=== PATIENT | male | born 1930 | race Caucasian/White ===

== ENCOUNTER 2017-09-14 09:26 | Inpatient (IN) | payer MEDICARE, OTHER ==
--- NOTE | 2017-09-14 09:35 | EDM.PDOC ---
ED HPI GENERAL MEDICAL PROBLEM - General Chief Complaint: General Stated Complaint: IN BY AMBULANCE Time Seen by Provider: 09/14/17 09:35 Source of Information: Reports: Patient, EMS, Family, Old Records, RN, RN Notes Reviewed History Limitations: Reports: No Limitations - History of Present Illness INITIAL COMMENTS - FREE TEXT/NARRATIVE: Arrives from home by ambulance with report that pt's son-in-law went to pt's house as he does every morning at 5AM to turn the kitchen light on, make sure the house is warm, and help the pt get up from bed and start the day. This morning he found the pt to be hard to wake up, and felt feverish to the touch. Pt was then found to be slightly confused and seemed to have right sided weakness and required a great deal of assistance to get to the bathroom. He was too weak to get up from the toilet. Pt had a severe coughing spell and nearly fainted, but then coughed up a "huge yellow pile of mucus". Pt reports he has been feeling weaker and weaker for several days, and has had a cough. He states that he felt nauseated this morning and has not eaten anything today. He did take his usual morning medications. Pt's is currently admitted to the hospital with a pneumonia diagnosis. Pt reports that the right sided weakness seems to have resolved now. He denies pain, headache, visual changes, difficulty swallowing, chest pain, abdominal pain, vomiting, diarrhea, or constipation. Pt's family states that the confusion has resolved now also. Onset: Gradual Duration: Day(s): (2-3) Location: Reports: Generalized Severity: Severe Improves with: Reports: None Worsens with: Reports: None Associated Symptoms: Reports: No Other Symptoms - Related Data Allergies Allergy/AdvReac Type Severity Reaction Status Date / Time No Known Allergies Allergy Verified 09/14/17 09:40 Home Meds: Home Meds Aspirin [Ecotrin] 81 mg PO DAILY 11/05/15 [History] Clopidogrel [Plavix] 75 mg PO DAILY 11/05/15 [History] Clorazepate Dipotassium [Tranxene T-Tab] 7.5 mg PO DAILY 11/05/15 [History] Cyanocobalamin (Vitamin B-12) [Cyanocobalamin Injection] 100 mg IM 11/05/15 [ History] Esomeprazole [NexIUM] 40 mg PO DAILY 11/05/15 [History] Glimepiride [Amaryl] 2 mg PO WITHBREAKFAST 11/05/15 [History] Hydroxychloroquine Sulfate [Plaquenil] 200 mg PO DAILY 11/05/15 [History] Irbesartan [Avapro] 150 mg PO DAILY 11/05/15 [History] Levothyroxine Sodium [Synthroid] 125 mcg PO DAILY 11/05/15 [History] Losartan Potassium [Cozaar] 100 mg PO DAILY 11/05/15 [History] Meclizine HCl [Antivert] 12.5 mg PO DAILY 11/05/15 [History] Mirabegron [Myrbetriq] 25 mg PO QPM 11/05/15 [History] Naproxen Sodium [Aleve] 220 mg PO BID PRN 11/05/15 [History] Pravastatin Sodium [Pravachol] 20 mg PO DAILY 11/05/15 [History] azaTHIOprine [Imuran] 50 mg PO BID 11/05/15 [History] predniSONE [Prednisone] 10 mg PO DAILY 11/05/15 [History] Past Medical History HEENT History: Reports: Cataract, Hard of Hearing, Impaired Vision Other HEENT History: WEARS FULL UPPER DENTURE, AND PARTIAL BOTTOM Cardiovascular History: Reports: CAD, High Cholesterol, Hypertension, [place], Other (See Below) Other Cardiovascular History: MILD CAROTID STENOSIS; STROKE (PT STATES HE WAS TOLD BY A DOCTOR THAT THEY WERE NOT SURE IF IT WAS TRULY A STROKE OR A KS) Gastrointestinal History: Reports: Diverticulosis, Hemorrhoids, Other (See Below ) Other Gastrointestinal History: DYSPHAGIA R/T STROKE; GASTRIC ULCER Genitourinary History: Reports: Renal Disease, Retention, Urinary Musculoskeletal History: Reports: SLE Neurological History: Reports: CVA Psychiatric History: Reports: Anxiety Endocrine/Metabolic History: Reports: Diabetes, Type II, Hypothyroidism Hematologic History: Reports: Anemia, Blood Transfusion(s), Transfusion Reaction Other Hematologic History: ATTEMPTED TO HAVE TWO UNITS BLOOD TRANSFUSED - PT "FROZE TO " AND STOPPED TRANSFUSION Immunologic History: Reports: SLE - Past Surgical History HEENT Surgical History: Reports: Cataract Surgery Cardiovascular Surgical History: Reports: Carotid Endarterectomy, Coronary Artery Stent, Vascular Surgery, Other (See Below) GI Surgical History: Reports: Appendectomy, Cholecystectomy, Colonoscopy, Hernia , Inguinal, Other (See Below) Male Surgical History: Reports: Other (See Below) Social & Family History - Family History Family Medical History: Noncontributory - Tobacco Use Smoking Status *Q: Former Smoker Years of Tobacco use: 50 Packs/Tins Daily: 3 Second Hand Smoke Exposure: No - Caffeine Use Caffeine Use: Reports: Coffee, Soda - Alcohol Use Days Per Week of Alcohol Use: 0 - Recreational Drug Use Recreational Drug Use: No - Living Situation & Occupation Living situation: Reports: , with Spouse Occupation: Retired ED ROS GENERAL - Review of Systems Review Of Systems: ROS reveals no pertinent complaints other than HPI. ED EXAM, GENERAL - Physical Exam Exam: See Below Exam Limited By: No Limitations General Appearance: Alert, No Apparent Distress, Thin, Other (frail, elderly appearing man, looks uncomfortable and sick, but non-toxic) Eye Exam: Bilateral Eye: Normal Inspection Ears: Normal External Exam, Hearing Grossly Normal Nose: Normal Inspection, Normal Mucosa, No Blood Throat/Mouth: Normal Lips, Normal Oropharynx, Normal Voice, No Airway Compromise , Other (not wearing his dentures, dry oral membranes) Head: Atraumatic, Normocephalic Neck: Normal Inspection, Supple, Non-Tender, Full Range of Motion. No: Lymphadenopathy (L), Lymphadenopathy (R) Respiratory/Chest: No Respiratory Distress, No Accessory Muscle Use, Chest Non- Tender, Decreased Breath Sounds, Crackles, Rhonchi Cardiovascular: Regular Rate, Rhythm, No Edema, No JVD GI/Abdominal: Normal Bowel Sounds, Soft, Non-Tender, No Distention, No Abnormal Bruit (Male) Exam: Deferred Rectal (Males) Exam: Deferred Back Exam: Normal Inspection Extremities: Normal Inspection, Normal Range of Motion, Non-Tender, Normal Capillary Refill, No Pedal Edema Neurological: Alert, Oriented, CN II-XII Intact, Normal Cognition, No Motor/ Sensory Deficits, Other (generalized weakness, no focal deficits) Psychiatric: Normal Mood Skin Exam: Warm, Dry, Intact, Normal Color, No Rash EKG INTERPRETATION EKG Date: 09/14/17 Time: 10:02 Rhythm: Other (SR) Rate (Beats/Min): 77 [place]: LAD-Left [place] Deviation P-Wave: Present QRS: Other (LAFB) ST-T: Normal QT: Normal Comparison: No Change EKG Interpretation Comments: No acute ischemic changes. Course - Vital Signs Last Recorded V/S: Last Vital Signs Temp 37.2 C 09/14/17 09:35 Pulse 79 09/14/17 10:22 Resp 20 09/14/17 10:22 BP 118/46 L 09/14/17 10:22 Pulse Ox 95 09/14/17 10:22 - Orders/Labs/Meds Orders: Active Orders 24 hr Category Date Time Status EKG 12 Lead [EKG Documentation Completion] [] STAT Care 09/14/17 09:48 Active Peripheral IV Care [RC] . DIRECTED Care 09/14/17 09:49 Active RT Aerosol Therapy [RC] ASDIRECTED Care 09/14/17 10:22 Active CULTURE BLOOD [BC] Stat Lab 09/14/17 09:52 Received CULTURE BLOOD [BC] Stat Lab 09/14/17 09:56 Results CULTURE SPUTUM + SMEAR [RM] Stat Lab 09/14/17 10:34 Received UA W/MICROSCOPIC [URIN] Stat Lab 09/14/17 09:48 Uncollected Levofloxacin/Dextrose 5%-Water [Levaquin in D5W 500 MG/ Med 09/14/17 10:23 Active 100 ML] 500 mg Premix Bag 1 bag IV ONETIME Sodium Chloride 0.9% [Saline Flush] Med 09/14/17 09:48 Active 10 ml FLUSH ASDIRECTED PRN Blood Culture x2 Reflex Set [OM.PC] Stat Oth 09/14/17 09:48 Ordered Peripheral IV Insertion Adult [OM.PC] Stat Oth 09/14/17 09:48 Ordered Medication Orders Levofloxacin/Dextrose 500 mg/ (Premix) 100 mls @ 100 mls/hr IV ONETIME ONE Stop: 09/14/17 11:22 Last Admin: 09/14/17 10:45 Dose: 100 mls/hr Sodium Chloride (Saline Flush) 10 ml FLUSH ASDIRECTED PRN PRN Reason: Keep Vein Open Last Admin: 09/14/17 10:29 Dose: 10 ml Labs: Laboratory Tests 09/14/17 09/14/17 09/14/17 Range/Units 09:56 09:56 09:56 WBC 18.8 H (5.0-10.0) 10^3/uL RBC 4.63 (4.6-6.2) 10^6/uL Hgb 14.4 (14.0-18.0) g/dL Hct 43.0 (40.0-54.0) % MCV 92.9 D (80-100) fL MCH 31.1 (27.0-34.0) pg MCHC 33.5 (33.0-35.0) g/dL Plt Count 134 L (150-450) 10^3/uL Neut % (Auto) 89.3 H (42.2-75.2) % Lymph % (Auto) 2.8 L (20.5-50.1) % [place] % (Auto) 7.6 (2-8) % Eos % (Auto) 0.2 L (1.0-3.0) % Baso % (Auto) 0.1 (0.0-1.0) % Sodium 141 (135-145) mmol/L Potassium 4.2 (3.6-5.0) mmol/L Chloride 111 (101-111) mmol/L Carbon Dioxide 22.0 (21.0-31.0) mmol/L Anion Gap 12.2 BUN 32 H (7-18) mg/dL Creatinine 1.2 (0.6-1.3) mg/dL Est Cr Clr Drug Dosing 38.77 mL/min Estimated GFR (MDRD) 57 BUN/Creatinine Ratio 26.66 Glucose 185 H (74-105) mg/dL Lactic Acid 1.3 (0.5-2.2) mmol/L Calcium 8.9 (8.4-10.2) mg/dl Total Bilirubin 1.2 H (0.2-1.0) mg/dL AST 24 (10-42) IU/L ALT 13 (10-60) IU/L Alkaline Phosphatase 50 (42-121) IU/L Troponin I 0.07 H* (0.00-0.02) ng/ml B-Natriuretic Peptide 246 H (0-100) pg/ml Total Protein 5.9 L (6.7-8.2) g/dl Albumin 3.6 (3.2-5.5) g/dl Globulin 2.3 Albumin/Globulin Ratio 1.57 Meds: Medications Generic Name Dose Route Start Last Admin Trade Name Freq PRN Reason Stop Dose Admin Levofloxacin/Dextrose 500 mg/ 100 mls @ 100 mls/hr 09/14/17 10:23 09/14/17 10 :45 Premix IV 09/14/17 11:22 100 mls/hr ONETIME ONE Administration Sodium Chloride 10 ml 09/14/17 09:48 09/14/17 10:29 Saline Flush FLUSH 10 ml ASDIRECTED PRN Administration Keep Vein Open Discontinued Medications Generic Name Dose Route Start Last Admin Trade Name Winstonq PRN Reason Stop Dose Admin Albuterol/Ipratropium 3 ml 09/14/17 10:22 09/14/17 10:26 Duoneb 3.0-0.5 Mg/3 Ml NEB 09/14/17 10:23 3 ml ONETIME ONE Administration Methylprednisolone Sodium Succinate 125 mg 09/14/17 10:23 09/14/17 10:43 Solu-Medrol IVPUSH 09/14/17 10:24 125 mg ONETIME ONE Administration Ondansetron HCl 4 mg 09/14/17 10:22 09/14/17 10:27 Zofran IV 09/14/17 10:23 4 mg ONETIME ONE Administration - Radiology Interpretation Free Text/Narrative:: CT Head: No acute I.C. hemorrhage or changes per Rad. report. CXR: COPD, no obvious infiltrate per Rad. report. Departure - Departure Time of Disposition: 10:59 (admit to Dr. Edward) Disposition: Admitted As Inpatient 65 Condition: Serious Clinical Impression: Acute exacerbation of chronic obstructive pulmonary disease (COPD) Pneumonia Qualifiers: Pneumonia type: due to unspecified organism Laterality: bilateral Lung location : unspecified part of lung Qualified Code(s): J18.9 - Pneumonia, unspecified organism - Discharge Information Forms: ED Department Discharge - My Orders Last 24 Hours: My Active Orders 09/14/17 09:48 EKG 12 Lead [EKG Documentation Completion] [RC] STAT UA W/MICROSCOPIC [URIN] Stat Sodium Chloride 0.9% [Saline Flush] 10 ml FLUSH ASDIRECTED PRN Blood Culture x2 Reflex Set [OM.PC] Stat Peripheral IV Insertion Adult [OM.PC] Stat 09/14/17 09:49 Peripheral IV Care [RC] . DIRECTED 09/14/17 09:52 CULTURE BLOOD [BC] Stat 09/14/17 09:56 CULTURE BLOOD [BC] Stat 09/14/17 10:22 RT Aerosol Therapy [RC] ASDIRECTED 09/14/17 10:23 Levofloxacin/Dextrose 5%-Water [Levaquin in D5W 500 MG/100 ML] 500 mg Premix Bag 1 bag IV ONETIME 09/14/17 10:34 CULTURE SPUTUM + SMEAR [RM] Stat - Assessment/Plan Last 24 Hours: My Active Orders 09/14/17 09:48 EKG 12 Lead [EKG Documentation Completion] [RC] STAT UA W/MICROSCOPIC [URIN] Stat Sodium Chloride 0.9% [Saline Flush] 10 ml FLUSH ASDIRECTED PRN Blood Culture x2 Reflex Set [OM.PC] Stat Peripheral IV Insertion Adult [OM.PC] Stat 09/14/17 09:49 Peripheral IV Care [RC] . DIRECTED 09/14/17 09:52 CULTURE BLOOD [BC] Stat 09/14/17 09:56 CULTURE BLOOD [BC] Stat 09/14/17 10:22 RT Aerosol Therapy [RC] ASDIRECTED 09/14/17 10:23 Levofloxacin/Dextrose 5%-Water [Levaquin in D5W 500 MG/100 ML] 500 mg Premix Bag 1 bag IV ONETIME 09/14/17 10:34 CULTURE SPUTUM + SMEAR [RM] Stat
[2017-09-14] MEDS ORDERED: Albuterol/Ipratropium 3.0-0.5 MG/3 ML Neb Soln NEB ONE (10:22)
[2017-09-14] MEDS ORDERED: Ondansetron 4 MG/2 ML SDV IV ONE (10:22)
[2017-09-14] MEDS ORDERED: Levofloxacin/Dextrose 5%-Water 500 MG in Premix Bag 1 BAG IV ONE (10:23)
[2017-09-14] MEDS ORDERED: methylPREDNISolone Sodium Succinate 125 MG/2 ML SDV IVPUSH ONE (10:23)
[2017-09-14 10:25] LABS: ANION GAP 12.2
[2017-09-14] MEDS: Sodium Chloride 0.9% 10 ML Syringe FLUSH PRN (10:29)
[2017-09-14] MEDS ORDERED: Bisacodyl 10 MG Supp RECTAL PRN (14:58)
[2017-09-14] MEDS ORDERED: Acetaminophen 325 MG Tab PO PRN (14:58)
[2017-09-14] MEDS: Meclizine 12.5 MG Tab PO SCH (20:56)
[2017-09-14] MEDS: Albuterol 0.083% 2.5 MG/3 ML Neb Soln NEB PRN (23:03)
[2017-09-14] MEDS: methylPREDNISolone Sodium Succinate 40 MG/1 ML SDV IVPUSH SCH (23:03)
[2017-09-15] MEDS: methylPREDNISolone Sodium Succinate 40 MG/1 ML SDV IVPUSH SCH ×3 (05:44→22:24)
[2017-09-15] MEDS: Omeprazole 20 MG Cap.CR PO SCH (05:44)
[2017-09-15] MEDS ORDERED: Irbesartan 150 MG Tab PO SCH (09:00)
[2017-09-15] MEDS: Hydroxychloroquine 200 MG Tab PO SCH (09:39)
[2017-09-15] MEDS: Losartan 50 MG Tab PO SCH (09:39)
[2017-09-15] MEDS: Aspirin 81 MG Tab.EC PO SCH (09:39)
[2017-09-15] MEDS: Levothyroxine 125 MCG Tab PO SCH (09:39)
[2017-09-15] MEDS: predniSONE 10 MG Tab PO SCH (09:40)
[2017-09-15] MEDS: Meclizine 12.5 MG Tab PO SCH ×2 (09:40→22:24)
[2017-09-15] MEDS: Glimepiride 2 MG Tab PO SCH (09:40)
[2017-09-15] MEDS: Clopidogrel 75 MG Tab PO SCH (09:40)
[2017-09-15] MEDS ORDERED: Levofloxacin/Dextrose 5%-Water 250 MG/50 ML Premix Bag IV SCH (10:00)
[2017-09-15] MEDS: Albuterol/Ipratropium 3.0-0.5 MG/3 ML Neb Soln NEB SCH ×3 (10:53→22:24)
[2017-09-15] MEDS: CLORAZEPATE DIPOTASSIUM 7.5 MG PO SCH ×2 (14:53→22:24)
[2017-09-15] MEDS: MIRABEGRON 25 MG PO SCH ×2 (14:53→22:24)
[2017-09-15] MEDS: Albuterol 0.083% 2.5 MG/3 ML Neb Soln NEB PRN (17:05)
--- NOTE | 2017-09-15 20:43 | HP ---
CHIEF COMPLAINT: Shortness of breath and weakness. HISTORY OF PRESENT ILLNESS: Mr. Vicente is an 87-year-old gentleman from his home in [place]. He said at 5:00 a.m. this morning, he was up to the bathroom, he felt okay. When he got back up at 7:00 a.m., he felt weak, his legs wanted to go out from under him. He denied any chest pain or shortness of breath. He has not had a fall for a "long time." He is not on home oxygen. His son-in-law comes to the house everyday to open the door (Mrs. Vicente is in the hospital). He found him to be slightly confused and seemed to have some right-sided weakness and severe coughing spell, during which he nearly "fainted" and then coughed up a "huge yellow pile of mucus." He was seen and evaluated in the Emergency Department. The ER provider felt that he was actually having an acute exacerbation of COPD and he was admitted for further management. PAST MEDICAL HISTORY: 1. Coronary artery disease. He has never had a myocardial infarction, but did have angiography with stent placement. 2. Type 2 diabetes for number of years. 3. Hypothyroidism. 4. Bilateral carotid artery stenosis. 5. Cerebrovascular disease with previous cerebral artery occlusion. 6. Hypertension. 7. Dyslipidemia. 8. Anemia. 9. Impaired vision. 10.Impaired hearing. 11.His chart states that he has lupus and when I asked him about this, his answer was "I guess.". 12.Osteoporosis. 13.BPH. 14.Seropositive rheumatoid arthritis. 15.Chronic kidney disease. 16.Hypothyroidism. 17.Anxiety disorder. PAST SURGICAL HISTORY: 1. History of gastric ulcer. 2. Left carotid endarterectomy in 1996. 3. Cardiac cath with stent placement, April of 2010. During the cardiac cath, he was found to have a totally occluded RCA and was offered cardiac bypass, but declined. 4. Angiogram of carotid systems, August of 2010. 5. History of appendectomy as a young man. 6. Bilateral inguinal hernia repair. 7. Cystourethroscopy in 2014. SOCIAL HISTORY: He was born in [place] at [facility]. He later moved to [place] in 1935. He moved to [place]. 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 He was in the [employer] for 3 years. He is . His currently is a patient in swing bed. He has been home alone while she is in the hospital and this seemed to be a contributing factor to his recent decline. He has 3 children and at least 16 grandchildren he states. He himself was an only child. He is a former smoker, who smoked at least 2 to 3 packs a day from the age of 13 until the age of 60, for a total of 120 to 150 pack-year history of smoking. Does not drink alcohol. FAMILY HISTORY: Basically, noncontributory. He was an only child and does not have any family history available. IMMUNIZATIONS: 1. PPV23, 04/24/2008. 2. PCV13, 04/02/2016. 3. Tetanus, 01/19/1997. 4. He appears to receive the annual flu vaccine but this year's flu vaccine has not yet been recorded in his chart. REVIEW OF SYSTEMS: As above. He denied chest pain today. Although he denied shortness of breath, he obviously was. There has been no blood by mouth or rectum. No fever or chills. No change in bowel or bladder habits. No change in appetite or weight. He wears upper and lower dentures. No recent illnesses or use of antibiotics. He states that they have been considering changing their living situation. Their daughter manages the [place] [facility] and they are considering possibly moving into it, although it is my understanding he has been reluctant, but has begun to consider it more seriously. CURRENT MEDICATIONS: His home medication list is reviewed. Medications include: 1. He is on prednisone, azathioprine, and hydroxychloroquine for his autoimmune diseases. 2. He is on antihypertensives and something for his blood sugar. Medications are reviewed and reconciled. Please see Emissary for complete schedule and dosing. ALLERGIES: He has no known drug allergies. PHYSICAL EXAMINATION: General: He is an elderly gentleman, seated comfortably in his bed. He voices no concerns or complaints. He is a little vague at times and mildly confused. Vital Signs: Blood pressure was 105/47 on the left, 106/53 on the right; pulse 77, respiratory rate 20, oxygen saturation 98% on room air. He is afebrile. Weight is 128 pounds 6.4 ounces. Height is 5 feet 10 inches. HEENT: Unremarkable. ENT was clear. No adenopathy. No JVDs or bruits. Chest: Clear, but diminished bilateral breath sounds. Heart: Regular rate and rhythm. Abdomen: Soft, benign with active bowel sounds. Extremities: No edema. Neurological: He is intact. LABORATORY AND DIAGNOSTIC DATA: CBC showed an elevated white count of 18.8 with a left shift, hemoglobin and hematocrit 14 and 43. Electrolytes were unremarkable. BUN and creatinine were 32 and 1.2 with a GFR of 57. Nonfasting blood sugar 185. LFTs were unremarkable. Troponin was 0.07 with a BNP of 246. Urinalysis was unremarkable. A 12-lead EKG showed a normal sinus rhythm with ventricular rate of 77. Normal axis and intervals. 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 Single-view chest x-ray was taken and showed no acute cardiopulmonary disease and showed changes consistent with chronic obstructive pulmonary disease. A non - contrast CT scan of the head was obtained because of the complaints of weakness, particularly with some thought given that he may have had earlier right-sided weakness. There were no acute intracranial processes. There were changes consistent with chronic microvascular disease and there is generalized cerebral atrophy. In the emergency room, Mr. Vicente received a DuoNeb treatment as well as 500 mg IV Levaquin, 125 mg of IV Solu-Medrol. He was then referred for admission. IMPRESSION: An 87-year-old gentleman with a long smoking history and documented chronic obstructive pulmonary disease, now presents with weakness as well as productive cough. Chest x-ray does not show a pneumonia, but changes are consistent with chronic obstructive pulmonary disease, and his presentation seems consistent with an acute exacerbation of chronic obstructive pulmonary disease. PLAN: 1. Mr. Vicente was admitted as an acute inpatient. 2. His usual medications will be continued. 3. For his COPD, he will be placed on scheduled DuoNeb and p.r.n. albuterol nebulizer treatments. He will continue on Levaquin 250 mg IV every 24 hours, and he was placed on tapering doses of IV Solu-Medrol. 4. Referrals were made to Physical and Occupational Therapy to evaluate him for weakness and also to help decide if placement is indicated as both he and his seem to be in decline. There is a swing bed care conference scheduled later this week for his and at that conference, it is likely that the disposition of both Mr. Vicente and Mrs. Vicente will be discussed with family and staff. 5. He was placed on a regular diet. 6. Two sets of blood cultures were drawn and results are pending. Sputum culture was ordered and results are pending. 7. Screening for influenza A and B was negative in the ER. 8. I discussed a code status with Mr. Vicente. He stated that he did not expect to live to be 87 years old and was very clear that he did not wish to have cardiopulmonary resuscitation. An order was placed for DNR/DNI. CONDITION AT THE TIME OF ADMISSION: Hemodynamically and neurologically stable. [facility] /[id number] MTDD
[2017-09-16] MEDS: methylPREDNISolone Sodium Succinate 40 MG/1 ML SDV IVPUSH SCH ×3 (00:12→23:50)
[2017-09-16] MEDS: Omeprazole 20 MG Cap.CR PO SCH (06:22)
[2017-09-16] MEDS ORDERED: cefTRIAXone 1 GM in Sodium Chloride 0.9% 50 ML IV SCH (07:30)
[2017-09-16] MEDS: Albuterol/Ipratropium 3.0-0.5 MG/3 ML Neb Soln NEB SCH ×4 (07:53→20:50)
[2017-09-16] MEDS: Levothyroxine 125 MCG Tab PO SCH (08:28)
[2017-09-16] MEDS: Aspirin 81 MG Tab.EC PO SCH (08:28)
[2017-09-16] MEDS: Losartan 50 MG Tab PO SCH (08:28)
[2017-09-16] MEDS: Meclizine 12.5 MG Tab PO SCH ×2 (08:28→20:50)
[2017-09-16] MEDS: Glimepiride 2 MG Tab PO SCH (08:28)
[2017-09-16] MEDS: Clopidogrel 75 MG Tab PO SCH (08:29)
[2017-09-16] MEDS: predniSONE 10 MG Tab PO SCH (08:29)
[2017-09-16] MEDS: Sodium Chloride 0.9% 10 ML Syringe FLUSH PRN (08:29)
[2017-09-16] MEDS: Hydroxychloroquine 200 MG Tab PO SCH (08:29)
--- NOTE | 2017-09-16 10:05 | PN ---
DATE: 09/15/2017 SUBJECTIVE: Mr. Vicente is an 87-year-old male, admitted yesterday because of bronchitis. Started on medications Levaquin and Solu-Medrol and nebulizations. The patient feels good today. He clearly denies any chest pain. Coughing out some phlegm. Does not note any wheezing. No significant issues reported by the patient's nursing staff. No headache or dizziness. Able to tolerate meals and ambulating fine. Pending physical therapy and occupational therapy consult. PHYSICAL EXAMINATION: Vital Signs: Blood pressure 110/58, heart rate of 68 beats per minute, respirations 20 breaths per minute, oxygen saturation 94%, temperature 98. General Appearance: Awake, in distress. Chest: Symmetric chest expansion. Lungs: Bilateral air entry. CVS: Regular rate and rhythm. Abdomen: Soft. Normoactive bowel sounds. Extremities: No edema. Good pulses. LABORATORY DATA: Repeat WBC is 14.1, there is a drop of hemoglobin from 14.4 to 11.8, and platelet count of 115. ASSESSMENT AND PLAN: The patient is clinically getting better. We will continue with Levaquin IV nebulizations and incentive spirometry. We will start tapering down the Solu-Medrol from 40 mg IV q.8 hours to 40 mg q.12 hours. Continue to monitor vital signs especially with the oxygenation. We will await physical therapy and occupational therapy assessment to help us with the discharge planning. Continue the rest of his medication. We will continue to follow the patient in the medical-surgical bed. [facility] /[id number]
[2017-09-16] MEDS: CLORAZEPATE DIPOTASSIUM 7.5 MG PO SCH (20:50)
[2017-09-16] MEDS: MIRABEGRON 25 MG PO SCH (20:51)
[2017-09-16] MEDS: cefTRIAXone 1 GM Vial IVPUSH SCH (20:53)
[2017-09-17] MEDS: Omeprazole 20 MG Cap.CR PO SCH (06:11)
[2017-09-17] MEDS: Albuterol/Ipratropium 3.0-0.5 MG/3 ML Neb Soln NEB SCH ×3 (07:24→20:38)
--- NOTE | 2017-09-17 08:03 | PN ---
DATE: 09/16/2017 SUBJECTIVE: Mr. Vicente is an 87-year-old, who was admitted because of bronchitis. Today, he feels good. He has no new concerns; however, sputum culture and sensitivity showed E. coli, which is resistant to the Levaquin that was prescribed to him. He is not spitting up any phlegm anymore but still with coughing. No fever or chills. Tolerating meals. He has not had any bowel movements yet. Ambulating well. Still with some weakness. PHYSICAL EXAMINATION: Vital Signs: Blood pressure 126/53, heart rate of 80 beats per minute, respirations 20 breaths per minute, oxygen saturation 80%, temperature 98.9. General Appearance: Awake, in no distress. Chest: Symmetric chest expansion. Lungs: Bilateral air entry. CVS: Regular rate and rhythm. Abdomen: Soft. Normoactive bowel sounds. Extremities: No edema. Good pulses. LABORATORY DATA: Laboratories done yesterday, improvement of WBC from 18 to 1. ASSESSMENT/PLAN: Antibiotic switched to Rocephin daily. The patient otherwise is clinically improving. We will continue with IV Solu-Medrol and albuterol nebulization. Continue to work with Physical Therapy, and he may need placement. [facility] /[id number]
[2017-09-17] MEDS: cefTRIAXone 1 GM Vial IVPUSH SCH ×2 (08:13→20:40)
[2017-09-17] MEDS: Sodium Chloride 0.9% 10 ML Syringe FLUSH PRN (08:13)
[2017-09-17] MEDS: Levothyroxine 125 MCG Tab PO SCH (08:14)
[2017-09-17] MEDS: Glimepiride 2 MG Tab PO SCH (08:14)
[2017-09-17] MEDS: Clopidogrel 75 MG Tab PO SCH (08:14)
[2017-09-17] MEDS: Hydroxychloroquine 200 MG Tab PO SCH (08:14)
[2017-09-17] MEDS: Aspirin 81 MG Tab.EC PO SCH (08:14)
[2017-09-17] MEDS: Meclizine 12.5 MG Tab PO SCH ×2 (08:14→20:37)
[2017-09-17] MEDS: Losartan 50 MG Tab PO SCH (08:14)
[2017-09-17] MEDS: predniSONE 10 MG Tab PO SCH (08:14)
[2017-09-17] MEDS: methylPREDNISolone Sodium Succinate 40 MG/1 ML SDV IVPUSH SCH ×2 (12:07→20:40)
[2017-09-17] MEDS: Insulin Aspart 100 Units/ML 3 ML Pen SUBCUT SCH ×2 (17:22→22:08)
[2017-09-17] MEDS: CLORAZEPATE DIPOTASSIUM 7.5 MG PO SCH (20:38)
[2017-09-17] MEDS: MIRABEGRON 25 MG PO SCH (20:39)
[2017-09-17] MEDS ORDERED: Insulin Detemir 100 Units/ML 3 ML Pen SUBCUT SCH (21:00)
[2017-09-17] MEDS ORDERED: Insulin Aspart 100 Units/ML 3 ML Pen SUBCUT ONE (22:03)
[2017-09-18] MEDS: Omeprazole 20 MG Cap.CR PO SCH (05:54)
[2017-09-18] MEDS: Albuterol/Ipratropium 3.0-0.5 MG/3 ML Neb Soln NEB SCH (07:24)
[2017-09-18 07:40] VITALS: BP 124/60
[2017-09-18] MEDS: Insulin Aspart 100 Units/ML 3 ML Pen SUBCUT SCH ×2 (09:11→12:16)
[2017-09-18] MEDS: methylPREDNISolone Sodium Succinate 40 MG/1 ML SDV IVPUSH SCH (09:12)
[2017-09-18] MEDS: cefTRIAXone 1 GM Vial IVPUSH SCH (09:12)
[2017-09-18] MEDS: Clopidogrel 75 MG Tab PO SCH (09:13)
[2017-09-18] MEDS: Meclizine 12.5 MG Tab PO SCH (09:13)
[2017-09-18] MEDS: Losartan 50 MG Tab PO SCH (09:13)
[2017-09-18] MEDS: Glimepiride 2 MG Tab PO SCH (09:13)
[2017-09-18] MEDS: Aspirin 81 MG Tab.EC PO SCH (09:13)
[2017-09-18] MEDS: predniSONE 10 MG Tab PO SCH (09:13)
[2017-09-18] MEDS: Levothyroxine 125 MCG Tab PO SCH (09:13)
[2017-09-18] MEDS: Hydroxychloroquine 200 MG Tab PO SCH (09:13)
--- NOTE | 2017-09-20 18:16 | EKG ---
09/14/2017 - DANIA PATEL - FINDINGS: This 12-lead EKG shows a normal sinus rhythm with a ventricular rate of 77. Normal axis and intervals. No acute ST-segment or T-wave changes. There is a left anterior fascicular block. [facility] /[id number]
--- NOTE | 2017-09-24 08:12 | PN ---
DATE: 09/17/2017 SUBJECTIVE: Mr. Vicente is an 87-year-old gentleman, who was initially admitted for pneumonia. He has improved since admission. He had been started on IV Levaquin, however, a sputum culture was obtained. The final culture result is now available and shows a growth of both E. coli and Haemophilus influenzae. When the E. coli was first reported, the Levaquin was stopped and he was switched to Rocephin. He still continues on Solu-Medrol because of his COPD. This morning, his main complaint is of feeling "shaky." He was noted to have a blood sugar of 484 this morning, and on repeat before lunch was 431. We will try to get him down off his Solu-Medrol as quickly as possible. We also have added glucose checks and NovoLog sliding scale. Physical Therapy has seen Mr. Vicente for evaluation regarding his current status, and we are looking at him for swing bed. Physical therapy feels that his ambulation is unsafe. At this point, he is still requires max assist and he is a high fall risk. We spoke to both and Mrs. Vicente and they agree that some time spent in swing bed would benefit him. Apparently, it has been some talk of placement, they would like to try at [place] basic care, but for that we will need to get him stronger and back up on his feet. Review of his clinical data shows that he is drinking fluids. He is voiding and moving his bowels. He is tolerating 100% of his meals. Vital signs are stable, and he has remained afebrile. PHYSICAL EXAMINATION: General: He is an elderly gentleman in no acute distress. At times, mildly confused. Vital Signs: Blood pressure 125/54, pulse 74, respiratory rate 20, oxygen saturation 95% on room air. He is afebrile. HEENT: Unremarkable. ENT was clear. Neck: No JVDs or bruits. No adenopathy. Chest: Showed clear but diminished bilateral breath sounds. Heart: Showed regular rate and rhythm. Abdomen: Soft and benign. Extremities: Showed no edema. Neurological: He is intact. ASSESSMENT AND PLAN: We will continue the present management. He remains on Rocephin for the pneumonia, based on the sputum culture results. We are looking at placing him in swing bed tomorrow so he can continue with ongoing physical and occupational therapy because of his generalized weakness and debility. No other changes are made today. [facility] /[id number] MTDD
--- NOTE | 2017-12-21 08:13 | DISCH ---
DOS: 09/18/2017 DISCHARGE DIAGNOSES: 1. Acute exacerbation of chronic obstructive pulmonary disease. 2. Generalized weakness and decline. 3. Type 2 diabetes with elevated blood sugars during this admission secondary to the use of IV steroids. 4. Cerebrovascular disease. 5. Hypertension. 6. Seropositive rheumatoid arthritis by history. 7. Chronic kidney disease. 8. Sputum obtained for culture and Gram stain. Sputum culture positive for Escherichia coli and Haemophilus influenzae. 9. Negative blood cultures. 10.Negative influenza A and B. 11.Coronary artery disease by history, stable. 12.Remainder of medical history as documented in the admission history and physical. REASON FOR ADMISSION: Mr. Vicente presented to the Emergency Department from his home in [place] with weakness. He denied chest pain or shortness of breath. There have been no falls. Mrs. Vicente is currently in the hospital, and he was seen by a neighbor and was found to be somewhat confused with possible right- sided weakness and had severe coughing which was productive of a large amount of yellow sputum. He was brought to the emergency room and evaluated. It was felt he was having acute exacerbation of COPD, and he is admitted for further management. LABORATORY DATA AND DIAGNOSTIC STUDIES: White count on the day of admission was 18,800 and prior to discharge to swing bed was normal at 9.7. Differential showed a left shift. Hemoglobin and hematocrit were 12 and 36.8. Electrolytes were unremarkable. LFTs were normal. BUN and creatinine were 32 and 1.2 with a GFR of 57. Admission blood sugar was 185 and blood sugars smiley and remained in the 300 to 400 range while on steroids. BNP was minimally elevated at 246. Troponin was minimally elevated at 0.07 on admission and 0.04 on repeat. Urinalysis was negative. Two sets of blood cultures remained without growth after 5 days. He was negative influenza A and B. Sputum was obtained, and Gram stain showed more than 25 wbc's per high-power field, but there were also more than 25 epithelial cells per low-power field. There were many gram-positive diplococci and a moderate amount of gram-positive cocci in chains. The culture grew E. coli and Haemophilus influenzae. A single-view chest x-ray was performed on the day of admission and showed changes consistent with chronic COPD, but there were no acute cardiopulmonary findings. A 12-lead EKG showed normal sinus rhythm with a ventricular rate of 77. There was a left anterior fascicular block. There were no acute ST-T wave changes. CT scan of the head without contrast was obtained and showed periventricular white matter changes. No acute ischemia or hemorrhage and no acute changes compared to previous study from 2012. HOSPITAL COURSE: Mr. Vicente was admitted as an acute inpatient for exacerbation of COPD. 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 At home, he is already on oral prednisone, azathioprine and hydroxychloroquine for his autoimmune disease. His usual medications will be continued. For his COPD, he was placed on scheduled DuoNeb and p.r.n. albuterol nebulizer treatments. He had started oral Levaquin and will be continued on IV Levaquin every 24 hours. He was placed on IV Solu-Medrol in tapering doses. Because of his generalized weakness, he was referred to Physical and Occupational Therapy for evaluation. Therapy felt that he could benefit from admission to swing bed, and today, he will be discharged from acute care and admitted to swing bed. PHYSICAL EXAMINATION: General: Today on the day of discharge, he is sitting comfortably in his recliner. He voices no concerns or complaints. Vital Signs: Blood pressure 124/60, pulse 75, respiratory rate 20, oxygen saturation 95% on room air. He is afebrile. Weight is 128 pounds 6.4 ounces. HEENT: Unremarkable. ENT was clear. No adenopathy. No JVDs or bruits. Chest: Showed clear but diminished bilateral breath sounds. Heart: Showed regular rate and rhythm. Abdomen: Soft, benign. Extremities: Showed no edema. The calves were soft and nontender. Neurological: He is intact. IMPRESSION: An 87-year-old gentleman with documented chronic obstructive pulmonary disease and long smoking history, presents with weakness and a productive cough. Chest x-ray did not show pneumonia, but changes were consistent with COPD, and he was admitted for further management. He gradually improved during the course of the admission and was recommended that he continue in swing bed for further occupational and physical therapy. [facility] /[id number]
== END 2017-09-18 14:14 | disposition swing bed (61) | DRG 192 ==
LOC: DL.ED 09:26 → UNDOADMIN 11:26 → DL.MS 11:26 → UNDOADMIN 14:58 → DL.MS 09-18 14:14 → UNDOADMIN 09-18 14:14 → UNDODISIN 09-18 14:14
PROVIDERS: ADMIT Internal Medicine; ATTEND Internal Medicine
DX: J44.0 Chronic obstructive pulmonary disease with (acute) lower respiratory infection (principal); J40 Bronchitis, not specified as acute or chronic; J44.1 Chronic obstructive pulmonary disease with (acute) exacerbation; E11.9 Type 2 diabetes mellitus without complications; E78.00 Pure hypercholesterolemia, unspecified; E03.9 Hypothyroidism, unspecified; Z79.82 Long term (current) use of aspirin; Z79.899 Other long term (current) drug therapy; Z87.891 Personal history of nicotine dependence; I25.10 Atherosclerotic heart disease of native coronary artery without angina pectoris; I13.10 Hypertensive heart and chronic kidney disease without heart failure, with stage 1 through stage 4 chronic kidney disease, or unspecified chronic kidney disease; N18.9 Chronic kidney disease, unspecified; Z95.5 Presence of coronary angioplasty implant and graft; I65.23 Occlusion and stenosis of bilateral carotid arteries; D64.9 Anemia, unspecified; H91.90 Unspecified hearing loss, unspecified ear; H54.7 Unspecified visual loss; N40.0 Benign prostatic hyperplasia without lower urinary tract symptoms; M05.9 Rheumatoid arthritis with rheumatoid factor, unspecified; M81.0 Age-related osteoporosis without current pathological fracture; F41.9 Anxiety disorder, unspecified; R53.1 Weakness
CPT/HCPCS: 36415; 70450; 71010; 80053; 81001; 83605; 83880; 84484; 85025; 87040 ×2; 87070; 87077; 87186; 87205; 87804 ×2; 93005; 93010; 94010; 96365; 96375; 99285; A9270 ×2; J1956; J2405; J2920; J2930; J7050; J7620; 82962; 85027; 94640; 97116-GP; 97162-GP; 97165-GO; 97530-GO; J0696; J1815-GY; J7500

== ENCOUNTER 2017-09-18 14:14 | Inpatient (IN) | payer MEDICARE, OTHER ==
[2017-09-18] MEDS ORDERED: Albuterol 0.083% 2.5 MG/3 ML Neb Soln NEB PRN (16:44)
[2017-09-18] MEDS ORDERED: Bisacodyl 10 MG Supp RECTAL PRN (16:44)
[2017-09-18] MEDS: Insulin Aspart 100 Units/ML 3 ML Pen SUBCUT SCH ×2 (17:38→21:13)
[2017-09-18] MEDS ORDERED: cefTRIAXone 1 GM Vial IVPUSH SCH (18:00)
[2017-09-18] MEDS: Meclizine 12.5 MG Tab PO SCH (20:28)
[2017-09-18] MEDS: Albuterol/Ipratropium 3.0-0.5 MG/3 ML Neb Soln NEB SCH (20:28)
[2017-09-18] MEDS: CLORAZEPATE DIPOTASSIUM 7.5 MG PO SCH (20:30)
[2017-09-18] MEDS: MYRBETRIQ 25 MG PO SCH (20:32)
[2017-09-18] MEDS: cefTRIAXone 1 GM Vial IVPUSH SCH (20:33)
[2017-09-18] MEDS: methylPREDNISolone Sodium Succinate 40 MG/1 ML SDV IVPUSH SCH (20:33)
[2017-09-18] MEDS ORDERED: methylPREDNISolone Sodium Succinate 40 MG/1 ML SDV IVPUSH SCH (21:00)
[2017-09-18] MEDS: Insulin Detemir 100 Units/ML 3 ML Pen SUBCUT SCH (21:13)
[2017-09-19] MEDS: Levothyroxine 125 MCG Tab PO SCH (06:00)
[2017-09-19] MEDS: Omeprazole 20 MG Cap.CR PO SCH (06:00)
[2017-09-19] MEDS: Albuterol/Ipratropium 3.0-0.5 MG/3 ML Neb Soln NEB SCH ×3 (07:36→20:50)
[2017-09-19] MEDS: Insulin Aspart 100 Units/ML 3 ML Pen SUBCUT SCH ×4 (09:14→21:30)
[2017-09-19] MEDS: Losartan 50 MG Tab PO SCH (09:16)
[2017-09-19] MEDS: Glimepiride 2 MG Tab PO SCH (09:16)
[2017-09-19] MEDS: Meclizine 12.5 MG Tab PO SCH ×2 (09:16→20:50)
[2017-09-19] MEDS: Hydroxychloroquine 200 MG Tab PO SCH (09:17)
[2017-09-19] MEDS: Aspirin 81 MG Tab.EC PO SCH (09:17)
[2017-09-19] MEDS: Clopidogrel 75 MG Tab PO SCH (09:17)
[2017-09-19] MEDS: Insulin Detemir 100 Units/ML 3 ML Pen SUBCUT SCH (09:18)
[2017-09-19] MEDS: methylPREDNISolone Sodium Succinate 40 MG/1 ML SDV IVPUSH SCH ×2 (09:20→20:56)
[2017-09-19] MEDS: predniSONE 10 MG Tab PO SCH (09:22)
[2017-09-19] MEDS: cefTRIAXone 1 GM Vial IVPUSH SCH ×2 (09:23→20:56)
[2017-09-19] MEDS: CLORAZEPATE DIPOTASSIUM 7.5 MG PO SCH (20:50)
[2017-09-19] MEDS: MYRBETRIQ 25 MG PO SCH (20:50)
[2017-09-19] MEDS: guaiFENesin/Dextromethorphan 100-10 MG/5 ML Soln 5 ML Cup PO SCH (20:51)
[2017-09-20] MEDS: Omeprazole 20 MG Cap.CR PO SCH (06:12)
[2017-09-20] MEDS: Levothyroxine 125 MCG Tab PO SCH (06:12)
[2017-09-20] MEDS: Albuterol/Ipratropium 3.0-0.5 MG/3 ML Neb Soln NEB SCH ×3 (07:50→20:38)
[2017-09-20] MEDS: Meclizine 12.5 MG Tab PO SCH ×2 (08:52→20:37)
[2017-09-20] MEDS: Aspirin 81 MG Tab.EC PO SCH (08:52)
[2017-09-20] MEDS: Insulin Aspart 100 Units/ML 3 ML Pen SUBCUT SCH ×4 (08:53→20:39)
[2017-09-20] MEDS: Losartan 50 MG Tab PO SCH (08:53)
[2017-09-20] MEDS: Clopidogrel 75 MG Tab PO SCH (08:53)
[2017-09-20] MEDS: Hydroxychloroquine 200 MG Tab PO SCH (08:53)
[2017-09-20] MEDS: cefTRIAXone 1 GM Vial IVPUSH SCH ×2 (08:53→20:40)
[2017-09-20] MEDS: Glimepiride 2 MG Tab PO SCH (08:53)
[2017-09-20] MEDS: Insulin Detemir 100 Units/ML 3 ML Pen SUBCUT SCH (08:58)
[2017-09-20] MEDS: predniSONE 10 MG Tab PO SCH (10:32)
[2017-09-20] MEDS: methylPREDNISolone Sodium Succinate 40 MG/1 ML SDV IVPUSH SCH (10:33)
[2017-09-20] MEDS: guaiFENesin/Dextromethorphan 100-10 MG/5 ML Soln 5 ML Cup PO SCH (20:36)
[2017-09-20] MEDS: CLORAZEPATE DIPOTASSIUM 7.5 MG PO SCH (20:37)
[2017-09-20] MEDS: MYRBETRIQ 25 MG PO SCH (20:37)
[2017-09-21] MEDS: Omeprazole 20 MG Cap.CR PO SCH (05:33)
[2017-09-21] MEDS: Levothyroxine 125 MCG Tab PO SCH (05:34)
[2017-09-21] MEDS: Albuterol/Ipratropium 3.0-0.5 MG/3 ML Neb Soln NEB SCH ×3 (07:01→20:25)
[2017-09-21] MEDS: Insulin Aspart 100 Units/ML 3 ML Pen SUBCUT SCH ×4 (08:40→21:01)
[2017-09-21] MEDS: Glimepiride 2 MG Tab PO SCH (08:41)
[2017-09-21] MEDS: Losartan 50 MG Tab PO SCH (08:42)
[2017-09-21] MEDS: Meclizine 12.5 MG Tab PO SCH ×2 (08:42→20:25)
[2017-09-21] MEDS: Clopidogrel 75 MG Tab PO SCH (08:43)
[2017-09-21] MEDS: Hydroxychloroquine 200 MG Tab PO SCH (08:43)
[2017-09-21] MEDS: Aspirin 81 MG Tab.EC PO SCH (08:43)
[2017-09-21] MEDS: predniSONE 10 MG Tab PO SCH (08:43)
[2017-09-21] MEDS: Insulin Detemir 100 Units/ML 3 ML Pen SUBCUT SCH (08:44)
[2017-09-21] MEDS: Sodium Chloride 0.9% 10 ML Syringe FLUSH PRN (09:26)
[2017-09-21] MEDS: cefTRIAXone 1 GM Vial IVPUSH SCH ×2 (09:26→20:26)
[2017-09-21] MEDS: MYRBETRIQ 25 MG PO SCH (20:24)
[2017-09-21] MEDS: CLORAZEPATE DIPOTASSIUM 7.5 MG PO SCH (20:25)
[2017-09-21] MEDS: guaiFENesin/Dextromethorphan 100-10 MG/5 ML Soln 5 ML Cup PO SCH (20:26)
[2017-09-22] MEDS: Levothyroxine 125 MCG Tab PO SCH (05:54)
[2017-09-22] MEDS: Omeprazole 20 MG Cap.CR PO SCH (05:54)
[2017-09-22] MEDS: Albuterol/Ipratropium 3.0-0.5 MG/3 ML Neb Soln NEB SCH ×3 (07:00→20:25)
[2017-09-22] MEDS: Insulin Aspart 100 Units/ML 3 ML Pen SUBCUT SCH ×4 (07:54→21:27)
[2017-09-22] MEDS: Hydroxychloroquine 200 MG Tab PO SCH (09:22)
[2017-09-22] MEDS: Meclizine 12.5 MG Tab PO SCH ×2 (09:22→20:23)
[2017-09-22] MEDS: Losartan 50 MG Tab PO SCH (09:22)
[2017-09-22] MEDS: Aspirin 81 MG Tab.EC PO SCH (09:22)
[2017-09-22] MEDS: Insulin Detemir 100 Units/ML 3 ML Pen SUBCUT SCH (09:23)
[2017-09-22] MEDS: Glimepiride 2 MG Tab PO SCH (09:23)
[2017-09-22] MEDS: Clopidogrel 75 MG Tab PO SCH (09:23)
[2017-09-22] MEDS: predniSONE 10 MG Tab PO SCH (09:23)
[2017-09-22] MEDS: cefTRIAXone 1 GM Vial IVPUSH SCH ×2 (09:24→20:48)
[2017-09-22] MEDS: Acetaminophen 325 MG Tab PO PRN ×2 (10:41→14:53)
[2017-09-22] MEDS: guaiFENesin/Dextromethorphan 100-10 MG/5 ML Soln 5 ML Cup PO SCH (20:23)
[2017-09-22] MEDS: MYRBETRIQ 25 MG PO SCH (20:24)
[2017-09-22] MEDS: CLORAZEPATE DIPOTASSIUM 7.5 MG PO SCH (20:24)
[2017-09-22] MEDS: Sodium Chloride 0.9% 10 ML Syringe FLUSH PRN ×2 (20:48→20:57)
[2017-09-23] MEDS: Acetaminophen 325 MG Tab PO PRN ×4 (02:26→22:47)
[2017-09-23] MEDS: Levothyroxine 125 MCG Tab PO SCH (06:01)
[2017-09-23] MEDS: Omeprazole 20 MG Cap.CR PO SCH (06:02)
[2017-09-23] MEDS: Albuterol/Ipratropium 3.0-0.5 MG/3 ML Neb Soln NEB SCH ×3 (07:42→21:06)
[2017-09-23] MEDS: Insulin Aspart 100 Units/ML 3 ML Pen SUBCUT SCH ×4 (08:50→21:04)
[2017-09-23] MEDS: Aspirin 81 MG Tab.EC PO SCH (09:28)
[2017-09-23] MEDS: Glimepiride 2 MG Tab PO SCH (09:29)
[2017-09-23] MEDS: Meclizine 12.5 MG Tab PO SCH ×2 (09:29→21:05)
[2017-09-23] MEDS: Hydroxychloroquine 200 MG Tab PO SCH (09:29)
[2017-09-23] MEDS: Clopidogrel 75 MG Tab PO SCH (09:30)
[2017-09-23] MEDS: predniSONE 10 MG Tab PO SCH (09:31)
[2017-09-23] MEDS: Losartan 50 MG Tab PO SCH (09:31)
[2017-09-23] MEDS: Insulin Detemir 100 Units/ML 3 ML Pen SUBCUT SCH (09:32)
[2017-09-23] MEDS: cefTRIAXone 1 GM Vial IVPUSH SCH ×2 (09:33→21:05)
[2017-09-23] MEDS: guaiFENesin/Dextromethorphan 100-10 MG/5 ML Soln 5 ML Cup PO SCH (21:05)
[2017-09-23] MEDS: MYRBETRIQ 25 MG PO SCH (21:07)
[2017-09-23] MEDS: CLORAZEPATE DIPOTASSIUM 7.5 MG PO SCH (21:07)
[2017-09-24] MEDS: Levothyroxine 125 MCG Tab PO SCH (06:21)
[2017-09-24] MEDS: Omeprazole 20 MG Cap.CR PO SCH (06:22)
[2017-09-24] MEDS: Albuterol/Ipratropium 3.0-0.5 MG/3 ML Neb Soln NEB SCH ×3 (07:43→21:25)
[2017-09-24] MEDS: Insulin Aspart 100 Units/ML 3 ML Pen SUBCUT SCH ×4 (08:22→21:46)
[2017-09-24] MEDS: predniSONE 10 MG Tab PO SCH (08:48)
[2017-09-24] MEDS: Aspirin 81 MG Tab.EC PO SCH (08:48)
[2017-09-24] MEDS: Hydroxychloroquine 200 MG Tab PO SCH (08:48)
[2017-09-24] MEDS: Meclizine 12.5 MG Tab PO SCH ×2 (08:49→21:24)
[2017-09-24] MEDS: Clopidogrel 75 MG Tab PO SCH (08:49)
[2017-09-24] MEDS: Losartan 50 MG Tab PO SCH (08:49)
[2017-09-24] MEDS: Glimepiride 2 MG Tab PO SCH (08:49)
[2017-09-24] MEDS: Acetaminophen 325 MG Tab PO PRN ×2 (08:50→23:59)
[2017-09-24] MEDS: cefTRIAXone 1 GM Vial IVPUSH SCH ×2 (08:51→21:26)
[2017-09-24] MEDS: Insulin Detemir 100 Units/ML 3 ML Pen SUBCUT SCH (09:00)
--- NOTE | 2017-09-24 11:54 | HP ---
REASON FOR ADMISSION TO SWING BED: Generalized weakness and debility following recent respiratory illness. Plan is to work with Physical and Occupational Therapy for strengthening and improvement of independence. HISTORY OF PRESENT ILLNESS: Mr. Vicente is an 87-year-old gentleman, who was hospitalized as an acute inpatient from 09/14 to today. He was admitted when he complained of weakness with some slight confusion. He had a cough productive of mucus. He was evaluated and it was felt that he had an acute exacerbation of his COPD, as well as possible pneumonia. His sputum cultures in Acute Care showed E. coli and Haemophilus influenzae. He has improved on IV antibiotics and improved even more when antibiotics were changed based on the culture results. We will continue and complete a course of antibiotics for his pneumonia. While in Acute Care, he was noted to be debilitated and weak and it was felt that he could benefit from a stay in swing bed to continue working with Physical and Occupational Therapy for strengthening. PAST MEDICAL HISTORY: 1. Coronary artery disease without history of myocardial infarction, but he does have at least 1 stent. 2. Type 2 diabetes. 3. Hypothyroidism. 4. Bilateral carotid artery stenosis. 5. Cerebrovascular disease with previous history of vascular occlusion. 6. Hypertension. 7. Dyslipidemia. 8. Anemia. 9. Impaired vision. 10.Impaired hearing. 11.Lupus and seropositive rheumatoid arthritis. 12.Osteoporosis. 13.BPH. 14.Chronic kidney disease. 15.Anxiety disorder. PAST SURGICAL HISTORY: 1. History of gastric ulcer. 2. Left carotid endarterectomy in 1996. 3. Cardiac cath with stent placement in April 2010. SOCIAL HISTORY: He was born in [place] at [facility]. He later moved to [place] in 1935, and then to [place]. 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 He was in [place] for 3 years. He is . He has 3 children at least 16 grandchildren he states. He himself was an only child. He is a former smoker, who smoked at least 2 to 3 packs of cigarettes a day from the age of 13 to the age of 60 for a total of 120 to 150-pack year history of smoking. Does not drink alcohol. FAMILY HISTORY: Noncontributory. He was an only child and does not have any history available. IMMUNIZATIONS: Up to date. Please see H and P. MEDICATIONS: Medications were ordered and reconciled. Please see [facility] [employer] for complete dosing and schedules. ALLERGIES: No known allergies. REVIEW OF SYSTEMS: He continues to be weak, needing max assist. He is a fall risk at times. He is poorly motivated. He denies any chest pain or shortness of breath. No abdominal pain. He is eating and tolerating his meals. He is voiding and moving his bowels. No fever or chills. Blood sugars during the acute stay had been higher on the Solu-Medrol, but before transfer to swing bed, they had come down into the upper 200s. We will continue to monitor this closely. PHYSICAL EXAMINATION: Vital Signs: On the day of admission to swing bed, blood pressure 112/58, pulse 72, respiratory rate 18, oxygen saturation 97% on room air. He is afebrile. HEENT: Unremarkable. ENT was clear. Chest: Showed clear but diminished bilateral breath sounds. Heart: Showed regular rate and rhythm. Abdomen: Soft, benign with active bowel sounds. Extremities: Showed no edema. Neurological: He is intact. IMPRESSION: An 87-year-old gentleman, who has been in Acute Care for treatment of pneumonia, is now debilitated, and he would benefit from working with Physical and Occupational Therapy to regain strength and to improve his gait and mobility. At this time, he is a high fall risk, and family would not be able to safely care for him at home alone. He was admitted to swing bed today. CONDITION AT TIME OF ADMISSION TO SWING BED: Hemodynamically, neurologically stable. [facility] /[id number] MTDD
[2017-09-24] MEDS: CLORAZEPATE DIPOTASSIUM 7.5 MG PO SCH (21:23)
[2017-09-24] MEDS: guaiFENesin/Dextromethorphan 100-10 MG/5 ML Soln 5 ML Cup PO SCH (21:24)
[2017-09-24] MEDS: MYRBETRIQ 25 MG PO SCH (21:24)
[2017-09-25] MEDS: Omeprazole 20 MG Cap.CR PO SCH (06:37)
[2017-09-25] MEDS: Levothyroxine 125 MCG Tab PO SCH (06:37)
[2017-09-25] MEDS: Albuterol/Ipratropium 3.0-0.5 MG/3 ML Neb Soln NEB SCH ×3 (07:55→21:22)
[2017-09-25] MEDS: Insulin Aspart 100 Units/ML 3 ML Pen SUBCUT SCH ×4 (08:14→21:23)
[2017-09-25] MEDS: Hydroxychloroquine 200 MG Tab PO SCH (08:30)
[2017-09-25] MEDS: Losartan 50 MG Tab PO SCH (08:30)
[2017-09-25] MEDS: predniSONE 10 MG Tab PO SCH (08:30)
[2017-09-25] MEDS: Clopidogrel 75 MG Tab PO SCH (08:30)
[2017-09-25] MEDS: Meclizine 12.5 MG Tab PO SCH ×2 (08:30→21:26)
[2017-09-25] MEDS: Aspirin 81 MG Tab.EC PO SCH (08:30)
[2017-09-25] MEDS: Glimepiride 2 MG Tab PO SCH (08:30)
[2017-09-25] MEDS: cefTRIAXone 1 GM Vial IVPUSH SCH ×2 (08:31→21:30)
[2017-09-25] MEDS: Insulin Detemir 100 Units/ML 3 ML Pen SUBCUT SCH (08:31)
[2017-09-25] MEDS: guaiFENesin/Dextromethorphan 100-10 MG/5 ML Soln 5 ML Cup PO SCH (21:22)
[2017-09-25] MEDS: CLORAZEPATE DIPOTASSIUM 7.5 MG PO SCH (21:25)
[2017-09-25] MEDS: MYRBETRIQ 25 MG PO SCH (21:25)
[2017-09-25] MEDS: Sodium Chloride 0.9% 10 ML Syringe FLUSH PRN (21:34)
[2017-09-26] MEDS: Omeprazole 20 MG Cap.CR PO SCH (06:21)
[2017-09-26] MEDS: Levothyroxine 125 MCG Tab PO SCH (06:21)
[2017-09-26] MEDS: Albuterol/Ipratropium 3.0-0.5 MG/3 ML Neb Soln NEB SCH ×3 (07:21→21:53)
[2017-09-26] MEDS: Insulin Aspart 100 Units/ML 3 ML Pen SUBCUT SCH ×4 (08:07→21:50)
[2017-09-26] MEDS: Insulin Detemir 100 Units/ML 3 ML Pen SUBCUT SCH (09:04)
[2017-09-26] MEDS: Glimepiride 2 MG Tab PO SCH (09:13)
[2017-09-26] MEDS: Meclizine 12.5 MG Tab PO SCH ×2 (09:14→21:57)
[2017-09-26] MEDS: predniSONE 10 MG Tab PO SCH (09:15)
[2017-09-26] MEDS: Aspirin 81 MG Tab.EC PO SCH (09:15)
[2017-09-26] MEDS: Hydroxychloroquine 200 MG Tab PO SCH (09:15)
[2017-09-26] MEDS: Clopidogrel 75 MG Tab PO SCH (09:15)
[2017-09-26] MEDS: Losartan 50 MG Tab PO SCH (09:17)
[2017-09-26] MEDS: Sodium Chloride 0.9% 10 ML Syringe FLUSH PRN ×3 (09:28→22:06)
[2017-09-26] MEDS: cefTRIAXone 1 GM Vial IVPUSH SCH ×2 (09:29→21:58)
[2017-09-26] MEDS: guaiFENesin/Dextromethorphan 100-10 MG/5 ML Soln 5 ML Cup PO SCH (21:53)
[2017-09-26] MEDS: CLORAZEPATE DIPOTASSIUM 7.5 MG PO SCH (21:56)
[2017-09-26] MEDS: MYRBETRIQ 25 MG PO SCH (21:56)
[2017-09-27] MEDS: Acetaminophen 325 MG Tab PO PRN (01:15)
[2017-09-27] MEDS: Omeprazole 20 MG Cap.CR PO SCH (05:58)
[2017-09-27] MEDS: Levothyroxine 125 MCG Tab PO SCH (05:58)
[2017-09-27] MEDS: Albuterol/Ipratropium 3.0-0.5 MG/3 ML Neb Soln NEB SCH ×3 (07:15→20:36)
[2017-09-27] MEDS: Insulin Aspart 100 Units/ML 3 ML Pen SUBCUT SCH ×4 (08:26→21:11)
[2017-09-27] MEDS: Sodium Chloride 0.9% 10 ML Syringe FLUSH PRN (10:05)
[2017-09-27] MEDS: cefTRIAXone 1 GM Vial IVPUSH SCH ×2 (10:05→20:39)
[2017-09-27] MEDS: Hydroxychloroquine 200 MG Tab PO SCH (10:06)
[2017-09-27] MEDS: Aspirin 81 MG Tab.EC PO SCH (10:06)
[2017-09-27] MEDS: Glimepiride 2 MG Tab PO SCH (10:06)
[2017-09-27] MEDS: Clopidogrel 75 MG Tab PO SCH (10:06)
[2017-09-27] MEDS: Meclizine 12.5 MG Tab PO SCH ×2 (10:07→20:34)
[2017-09-27] MEDS: predniSONE 10 MG Tab PO SCH (10:07)
[2017-09-27] MEDS: Losartan 50 MG Tab PO SCH (10:07)
[2017-09-27] MEDS: Insulin Detemir 100 Units/ML 3 ML Pen SUBCUT SCH (10:10)
--- NOTE | 2017-09-27 11:09 | PCM.PN ---
- General Info Date of Service: 09/27/17 Admission Dx/Problem (Free Text): Pneumonia Generalized debilitated state Subjective Update: Patient is 87 y/o male with multiple comobids who was admitted to acute care service on 09/14/17 for treatment of pneumonia and COPD exacerbation. He improved o IV antibiotics and was subsequently discharge to swing bed for PT/OT due to generalized debilitated state. Seen today No complaints Doing well No overnight events Functional Status: Reports: Pain Controlled - Review of Systems General: Reports: No Symptoms HEENT: Reports: No Symptoms Pulmonary: Reports: No Symptoms Cardiovascular: Reports: No Symptoms Gastrointestinal: Reports: No Symptoms Genitourinary: Reports: No Symptoms Musculoskeletal: Reports: No Symptoms Skin: Reports: No Symptoms Neurological: Reports: No Symptoms Psychiatric: Reports: No Symptoms - Patient Data Vitals - Most Recent: Last Vital Signs Temp 98.8 F 09/27/17 01:25 Pulse 77 09/26/17 20:04 Resp 20 09/26/17 20:04 BP 138/49 L 09/27/17 10:07 Pulse Ox 93 L 09/26/17 20:04 Weight - Most Recent: 125 lb 3.2 oz I&O - Last 24 Hours: Intake & Output 09/26/17 09/27/17 09/27/17 22:59 06:59 14:59 Intake Total 250 575 250 Output Total 350 900 Balance -100 -325 250 Lab Results Last 24 Hours: Laboratory Results - last 24 hr 09/26/17 09/26/17 09/26/17 Range/Units 11:21 17:09 20:45 POC Glucose 187 H 257 H 266 H (83-110) mg/dl 09/27/17 Range/Units 07:51 POC Glucose 134 H (83-110) mg/dl Med Orders - Current: Current Medications Acetaminophen (Tylenol) 650 mg PO Q4H PRN PRN Reason: Pain/Fever Last Admin: 09/27/17 01:15 Dose: 650 mg Albuterol (Proventil Neb Soln) 2.5 mg NEB Q4HRRT PRN PRN Reason: Dyspnea Last Admin: 09/22/17 11:16 Dose: 2.5 mg Albuterol/Ipratropium (Duoneb 3.0-0.5 Mg/3 Ml) 3 ml NEB TIDRT [facility] Last Admin: 09/27/17 07:15 Dose: 3 ml Aspirin (Halfprin) 81 mg PO DAILY [facility] Last Admin: 09/27/17 10:06 Dose: 81 mg Azathioprine (Imuran) 50 mg PO WITHBREAKFAST [facility] Last Admin: 09/27/17 10:06 Dose: 50 mg Bisacodyl (Dulcolax) 10 mg RECTAL DAILY PRN PRN Reason: Constipation Last Admin: 09/24/17 00:01 Dose: 10 mg Ceftriaxone Sodium (Rocephin) 1 gm IVPUSH Q12HR [facility] Last Admin: 09/27/17 10:05 Dose: 1 gm Clopidogrel Bisulfate (Plavix) 75 mg PO DAILY [facility] Last Admin: 09/27/17 10:06 Dose: 75 mg Glimepiride (Amaryl) 2 mg PO WITHBREAKFAST [facility] Last Admin: 09/27/17 10:06 Dose: 2 mg Guaifenesin/Phenylephrine HCl (Robitussin Dm) 10 ml PO BEDTIME [facility] Last Admin: 09/26/17 21:53 Dose: 10 ml Hydroxychloroquine Sulfate (Plaquenil) 200 mg PO DAILY [facility] Last Admin: 09/27/17 10:06 Dose: 200 mg Insulin Aspart (Novolog) 0 unit SUBCUT ACBED [facility] PRN Reason: Protocol Last Admin: 09/27/17 08:26 Dose: Not Given Insulin Detemir (Levemir) 0 unit SUBCUT DAILY [facility] Last Admin: 09/27/17 10:10 Dose: 12 units Levothyroxine Sodium (Levothyroxine) 125 mcg PO ACBREAKFAST [facility] Last Admin: 09/27/17 05:58 Dose: 125 mcg Losartan Potassium (Cozaar) 50 mg PO DAILY [facility] Last Admin: 09/27/17 10:07 Dose: 50 mg Meclizine HCl (Antivert) 12.5 mg PO BID [facility] Last Admin: 09/27/17 10:07 Dose: 12.5 mg Nystatin/Triamcinolone Acetonide (Mycolog Crm) 0 gm TOP BID [facility] Last Admin: 09/27/17 10:08 Dose: 1 applic Omeprazole (Omeprazole) 20 mg PO ACBRK [facility] Last Admin: 09/27/17 05:58 Dose: 20 mg Clorazepate Dipotassium ( Tranxene-T) 7.5 Mg Tab Own Med 0 each PO BEDTIME [facility] Last Admin: 09/26/17 21:56 Dose: 1 each Myrbetriq ( Mirabegron) 25 Mg Tab Own Med 0 each PO BEDTIME [facility] Last Admin: 09/26/17 21:56 Dose: 1 each Prednisone (Prednisone) 10 mg PO DAILY [facility] Last Admin: 09/27/17 10:07 Dose: 10 mg Sodium Chloride (Saline Flush) 10 ml FLUSH ASDIRECTED PRN PRN Reason: Keep Vein Open Last Admin: 09/27/17 10:05 Dose: 10 ml Discontinued Medications Ceftriaxone Sodium (Rocephin) 1 gm IVPUSH Q12H [facility] Insulin Detemir (Levemir) 10 unit SUBCUT DAILY [facility] Last Admin: 09/20/17 08:58 Dose: 10 units Methylprednisolone Sodium Succinate (Solu-Medrol) 40 mg IVPUSH Q12H [facility] Methylprednisolone Sodium Succinate (Solu-Medrol) 20 mg IVPUSH Q12H [facility] Last Admin: 09/20/17 10:33 Dose: Not Given - Exam General: Alert, Oriented HEENT: Pupils Equal, Pupils Reactive, EOMI, Mucous Membr. Moist/[place] Neck: Supple Lungs: Clear to Auscultation, Normal Respiratory Effort Cardiovascular: Regular Rate, Regular Rhythm GI/Abdominal Exam: Normal Bowel Sounds, Soft, Non-Tender, No Organomegaly, No Distention, No Abnormal Bruit, No Mass, Pelvis Stable (Male) Exam: No Hernia, Normal Inspection, Normal Prostate, Circumcised Back Exam: Normal Inspection, Full Range of Motion Extremities: Normal Inspection, Normal Range of Motion, Non-Tender, No Pedal Edema, Normal Capillary Refill Skin: Warm, Dry, Intact Wound/Incisions: Healing Well Neurological: No New Focal Deficit Psy/Mental Status: Alert, Normal Affect, Normal Mood - Problem List & Annotations (1) Weakness generalized SNOMED Code(s): 87570031 Code(s): R53.1 - WEAKNESS Status: Acute Current Visit: Yes (2) Acute exacerbation of chronic obstructive pulmonary disease (COPD) SNOMED Code(s): 603645306 Code(s): J44.1 - CHRONIC OBSTRUCTIVE PULMONARY DISEASE W (ACUTE) EXACERBATION Status: Acute Priority: High Current Visit: Yes (3) Pneumonia SNOMED Code(s): 580383063 Code(s): J18.9 - PNEUMONIA, UNSPECIFIED ORGANISM Status: Acute Current Visit: Yes Qualifiers: Pneumonia type: due to unspecified organism Laterality: bilateral Lung location: unspecified part of lung Qualified Code(s): J18.9 - Pneumonia, unspecified organism - Problem List Review Problem List Initiated/Reviewed/Updated: Yes - Assessment Assessment:: - Generalized debilitated state -Resolving pneumonia -COPD - Plan Plan:: -Continue abx for one more day -continue PT/OT -Continue all current care
--- NOTE | 2017-09-27 11:14 | PN ---
DATE: 09/22/2017 HISTORY OF PRESENT ILLNESS: Mr. Vicente was admitted to swing bed for ongoing treatment of his pneumoniam, as well as to work with Physical and Occupational Therapy for strengthening. Physical Therapy continues to try to motivate him. At times, he is willing to get up and work with them, but other times reluctant. Apparently, this morning when they tried to walk with him to the therapy room on the nursing unit, he could only get about care home across the hallway and they needed to put a chair behind him for him to sit. We have been talking to him and trying to encourage him to work with therapy so that he can achieve the goal of getting to basic care. If we cannot get him more independent, we will need to seek placement in fdc. His had been a patient in acute care and swing bed also and she has now been discharged to home and this seems to have also added to his depression about his whole situation. It was noted today that he was having issues with voiding. Bladder scan was done and showed approximately 300 mL the urine in the bladder. A 12-Uzbek Lopez catheter was placed. Urinalysis was sent, showed a slightly cloudy yellow urine with a specific gravity 1.025 with negative microscopic exam. We will attempt to get the Lopez out as quickly as possible. Review of his blood sugars show that sugars have improved now that he is off the IV Solu-Medrol and continues only on his chronic dose of prednisone 10 mg daily. Sugars are now within normal limits except for occasionally higher sugar depending on his oral intake. There is a care conference scheduled for tomorrow. I did have a chance to speak with Mr. Vicente's daughter, Isaura, who is a nurse manager bridge at the [employer]. I expressed to her our concerns about his motivation; she also has tried to motivate her father to get up and work with staff. The treatment of his pneumonia continues. His cough is less, it is also less productive. Review of his clinical data shows that he is taking in fluids. He is voiding and moving his bowels. Appetite is fair to good. He is tolerating his diet. Vital signs have been stable and he remains afebrile. PHYSICAL EXAMINATION: General: He is an elderly gentleman seated in his recliner. He voices no new concerns or complaints. He is sitting there comfortably. Vital Signs: Blood pressure 133/61, pulse 85, respiratory rate 20, oxygen saturation 91% on room air, and temperature 99.5 this morning. HEENT: Unremarkable. ENT was clear. Chest: Showed diminished but improved bilateral breath sounds without wheezes, rales, or rhonchi. Heart: Showed regular rate and rhythm. Abdomen: Soft and benign. Extremities: Showed no edema. Neuro: Neurologically, no gross deficits. IMPRESSION: An 87-year-old gentleman admitted to swing bed. Originally, treated for pneumonia, is on IV Rocephin. He is debilitated and needs max assist with ADLs, and is working with Physical and Occupational Therapy to regain strength and improve his gait safety. He remains a high fall risk. PLAN: 1. Continue and complete a course of Rocephin which was started on September 16, 2017. 2. Continue working daily with Physical and Occupational Therapy as above. 3. Continue to encourage Mr. Vicente to work with staff in order to regain strength and return and achieve the goal of going to basic care if possible. Otherwise, we will have to look for fdc placement. 4. Large volume urinary retention. Mr. Vicente had 300 mL of urine in the bladder today and the Lopez catheter was placed. We will attempt to get the Lopez out as quickly as possible. 5. No other changes are made today. [facility] /[id number] MTDD
[2017-09-27] MEDS: CLORAZEPATE DIPOTASSIUM 7.5 MG PO SCH (20:33)
[2017-09-27] MEDS: MYRBETRIQ 25 MG PO SCH (20:33)
[2017-09-27] MEDS: guaiFENesin/Dextromethorphan 100-10 MG/5 ML Soln 5 ML Cup PO SCH (20:35)
[2017-09-28] MEDS: Acetaminophen 325 MG Tab PO PRN (03:41)
[2017-09-28] MEDS: Levothyroxine 125 MCG Tab PO SCH (05:51)
[2017-09-28] MEDS: Omeprazole 20 MG Cap.CR PO SCH (05:51)
[2017-09-28] MEDS: Albuterol/Ipratropium 3.0-0.5 MG/3 ML Neb Soln NEB SCH ×3 (07:49→20:34)
[2017-09-28] MEDS: Insulin Aspart 100 Units/ML 3 ML Pen SUBCUT SCH ×4 (08:31→21:19)
[2017-09-28] MEDS: Clopidogrel 75 MG Tab PO SCH (08:55)
[2017-09-28] MEDS: Aspirin 81 MG Tab.EC PO SCH (08:55)
[2017-09-28] MEDS: Hydroxychloroquine 200 MG Tab PO SCH (08:55)
[2017-09-28] MEDS: Losartan 50 MG Tab PO SCH (08:55)
[2017-09-28] MEDS: Meclizine 12.5 MG Tab PO SCH ×2 (08:55→20:32)
[2017-09-28] MEDS: Glimepiride 2 MG Tab PO SCH (08:55)
[2017-09-28] MEDS: predniSONE 10 MG Tab PO SCH (08:56)
[2017-09-28] MEDS: Insulin Detemir 100 Units/ML 3 ML Pen SUBCUT SCH (08:56)
[2017-09-28] MEDS: cefTRIAXone 1 GM Vial IVPUSH SCH ×2 (08:56→20:34)
[2017-09-28] MEDS ORDERED: CYANOCOBALAMIN 1000 MCG/ML IM ONE (20:00)
[2017-09-28] MEDS: MYRBETRIQ 25 MG PO SCH (20:32)
[2017-09-28] MEDS: CLORAZEPATE DIPOTASSIUM 7.5 MG PO SCH (20:33)
[2017-09-28] MEDS: guaiFENesin/Dextromethorphan 100-10 MG/5 ML Soln 5 ML Cup PO SCH (20:34)
[2017-09-29] MEDS: Acetaminophen 325 MG Tab PO PRN (00:37)
[2017-09-29] MEDS: Omeprazole 20 MG Cap.CR PO SCH (05:37)
[2017-09-29] MEDS: Levothyroxine 125 MCG Tab PO SCH (05:37)
[2017-09-29] MEDS: Albuterol/Ipratropium 3.0-0.5 MG/3 ML Neb Soln NEB SCH ×3 (07:17→20:41)
[2017-09-29] MEDS: Insulin Aspart 100 Units/ML 3 ML Pen SUBCUT SCH ×4 (08:18→21:54)
[2017-09-29] MEDS: Insulin Detemir 100 Units/ML 3 ML Pen SUBCUT SCH (09:02)
[2017-09-29] MEDS: Losartan 50 MG Tab PO SCH (09:02)
[2017-09-29] MEDS: Meclizine 12.5 MG Tab PO SCH ×2 (09:02→20:31)
[2017-09-29] MEDS: Aspirin 81 MG Tab.EC PO SCH (09:02)
[2017-09-29] MEDS: Clopidogrel 75 MG Tab PO SCH (09:03)
[2017-09-29] MEDS: Glimepiride 2 MG Tab PO SCH (09:03)
[2017-09-29] MEDS: Hydroxychloroquine 200 MG Tab PO SCH (09:03)
[2017-09-29] MEDS: predniSONE 10 MG Tab PO SCH (09:03)
[2017-09-29] MEDS ORDERED: guaiFENesin/Dextromethorphan 100-10 MG/5 ML Soln 5 ML Cup PO PRN (18:00)
[2017-09-29] MEDS: CLORAZEPATE DIPOTASSIUM 7.5 MG PO SCH (20:32)
[2017-09-29] MEDS: MYRBETRIQ 25 MG PO SCH (20:32)
[2017-09-30] MEDS: Acetaminophen 325 MG Tab PO PRN ×2 (02:22→20:39)
[2017-09-30] MEDS: Levothyroxine 125 MCG Tab PO SCH (05:53)
[2017-09-30] MEDS: Omeprazole 20 MG Cap.CR PO SCH (05:54)
[2017-09-30] MEDS: Albuterol/Ipratropium 3.0-0.5 MG/3 ML Neb Soln NEB SCH ×3 (07:19→20:39)
[2017-09-30] MEDS: Insulin Aspart 100 Units/ML 3 ML Pen SUBCUT SCH ×4 (08:19→21:41)
[2017-09-30] MEDS: Meclizine 12.5 MG Tab PO SCH ×2 (08:41→20:40)
[2017-09-30] MEDS: Losartan 50 MG Tab PO SCH (08:41)
[2017-09-30] MEDS: Clopidogrel 75 MG Tab PO SCH (08:42)
[2017-09-30] MEDS: predniSONE 10 MG Tab PO SCH (08:42)
[2017-09-30] MEDS: Aspirin 81 MG Tab.EC PO SCH (08:42)
[2017-09-30] MEDS: Insulin Detemir 100 Units/ML 3 ML Pen SUBCUT SCH (08:42)
[2017-09-30] MEDS: Hydroxychloroquine 200 MG Tab PO SCH (08:42)
[2017-09-30] MEDS: Glimepiride 2 MG Tab PO SCH (08:42)
[2017-09-30] MEDS: CLORAZEPATE DIPOTASSIUM 7.5 MG PO SCH (20:39)
[2017-09-30] MEDS: MYRBETRIQ 25 MG PO SCH (20:52)
[2017-10-01] MEDS: Levothyroxine 125 MCG Tab PO SCH (05:55)
[2017-10-01] MEDS: Omeprazole 20 MG Cap.CR PO SCH (05:55)
[2017-10-01] MEDS: Albuterol/Ipratropium 3.0-0.5 MG/3 ML Neb Soln NEB SCH ×3 (07:37→20:33)
[2017-10-01] MEDS: Losartan 50 MG Tab PO SCH (09:39)
[2017-10-01] MEDS: Glimepiride 2 MG Tab PO SCH (09:39)
[2017-10-01] MEDS: Meclizine 12.5 MG Tab PO SCH ×2 (09:39→20:33)
[2017-10-01] MEDS: Aspirin 81 MG Tab.EC PO SCH (09:39)
[2017-10-01] MEDS: Hydroxychloroquine 200 MG Tab PO SCH (09:39)
[2017-10-01] MEDS: Clopidogrel 75 MG Tab PO SCH (09:39)
[2017-10-01] MEDS: predniSONE 10 MG Tab PO SCH (09:39)
[2017-10-01] MEDS: Insulin Aspart 100 Units/ML 3 ML Pen SUBCUT SCH ×4 (09:40→20:34)
[2017-10-01] MEDS: Insulin Detemir 100 Units/ML 3 ML Pen SUBCUT SCH (09:40)
[2017-10-01] MEDS: CLORAZEPATE DIPOTASSIUM 7.5 MG PO SCH (20:35)
[2017-10-01] MEDS: MYRBETRIQ 25 MG PO SCH (20:35)
[2017-10-01] MEDS: Acetaminophen 325 MG Tab PO PRN (20:36)
[2017-10-02] MEDS: Levothyroxine 125 MCG Tab PO SCH (05:33)
[2017-10-02] MEDS: Omeprazole 20 MG Cap.CR PO SCH (05:33)
[2017-10-02] MEDS: Albuterol/Ipratropium 3.0-0.5 MG/3 ML Neb Soln NEB SCH (07:35)
[2017-10-02] MEDS: Insulin Aspart 100 Units/ML 3 ML Pen SUBCUT SCH ×4 (08:11→21:13)
[2017-10-02] MEDS: Meclizine 12.5 MG Tab PO SCH ×2 (08:47→21:13)
[2017-10-02] MEDS: Hydroxychloroquine 200 MG Tab PO SCH (08:47)
[2017-10-02] MEDS: Losartan 50 MG Tab PO SCH (08:47)
[2017-10-02] MEDS: Aspirin 81 MG Tab.EC PO SCH (08:48)
[2017-10-02] MEDS: predniSONE 10 MG Tab PO SCH (08:48)
[2017-10-02] MEDS: Clopidogrel 75 MG Tab PO SCH (08:48)
[2017-10-02] MEDS: Glimepiride 2 MG Tab PO SCH (08:48)
[2017-10-02] MEDS: Insulin Detemir 100 Units/ML 3 ML Pen SUBCUT SCH (08:52)
--- NOTE | 2017-10-02 15:02 | PCM.PN ---
- General Info Date of Service: 10/02/17 Admission Dx/Problem (Free Text): Pneumonia Generalized debilitated state Subjective Update: Patient is 87 y/o male with multiple comorbidities who was admitted to acute care service on 09/14/17 for treatment of pneumonia and COPD exacerbation. He improved with IV antibiotics and was subsequently discharge to swing bed for PT/ OT due to generalized debilitated state. Seen today No complaints Doing well Head Lopez catheter placed due to urinary retention Breathing has improved. - Review of Systems General: Denies: Fever Pulmonary: Denies: Shortness of Breath Cardiovascular: Denies: Chest Pain Gastrointestinal: Denies: Abdominal Pain Genitourinary: Reports: Other (Has Lopez catheter) - Patient Data Vitals - Most Recent: Last Vital Signs Temp 36.3 C 10/02/17 07:50 Pulse 76 10/02/17 07:50 Resp 20 10/02/17 07:50 BP 126/60 10/02/17 08:47 Pulse Ox 92 L 10/02/17 07:50 Weight - Most Recent: 56.79 kg I&O - Last 24 Hours: Intake & Output 10/01/17 10/02/17 10/02/17 22:59 06:59 14:59 Intake Total 200 360 Output Total 700 900 450 Balance -700 -700 -90 Lab Results Last 24 Hours: Laboratory Results - last 24 hr 10/01/17 10/01/17 10/02/17 Range/Units 17:05 20:17 07:54 POC Glucose 128 H 183 H 85 (83-110) mg/dl 10/02/17 Range/Units 11:54 POC Glucose 136 H (83-110) mg/dl Med Orders - Current: Current Medications Acetaminophen (Tylenol) 650 mg PO Q4H PRN PRN Reason: Pain/Fever Last Admin: 10/01/17 20:36 Dose: 650 mg Albuterol (Proventil Neb Soln) 2.5 mg NEB Q4HRRT PRN PRN Reason: Dyspnea Last Admin: 09/22/17 11:16 Dose: 2.5 mg Aspirin (Halfprin) 81 mg PO DAILY [facility] Last Admin: 10/02/17 08:48 Dose: 81 mg Azathioprine (Imuran) 50 mg PO WITHBREAKFAST [facility] Last Admin: 10/02/17 08:47 Dose: 50 mg Bisacodyl (Dulcolax) 10 mg RECTAL DAILY PRN PRN Reason: Constipation Last Admin: 09/24/17 00:01 Dose: 10 mg Clopidogrel Bisulfate (Plavix) 75 mg PO DAILY [facility] Last Admin: 10/02/17 08:48 Dose: 75 mg Glimepiride (Amaryl) 2 mg PO WITHBREAKFAST [facility] Last Admin: 10/02/17 08:48 Dose: 2 mg Guaifenesin/Phenylephrine HCl (Robitussin Dm) 10 ml PO Q4HR PRN PRN Reason: Cough Last Admin: 09/29/17 23:40 Dose: 10 ml Hydroxychloroquine Sulfate (Plaquenil) 200 mg PO DAILY [facility] Last Admin: 10/02/17 08:47 Dose: 200 mg Insulin Aspart (Novolog) 0 unit SUBCUT ACBED [facility] PRN Reason: Protocol Last Admin: 10/02/17 12:07 Dose: Not Given Insulin Detemir (Levemir) 0 unit SUBCUT DAILY [facility] Last Admin: 10/02/17 08:52 Dose: 12 units Levothyroxine Sodium (Levothyroxine) 125 mcg PO ACBREAKFAST [facility] Last Admin: 10/02/17 05:33 Dose: 125 mcg Losartan Potassium (Cozaar) 50 mg PO DAILY [facility] Last Admin: 10/02/17 08:47 Dose: 50 mg Meclizine HCl (Antivert) 12.5 mg PO BID [facility] Last Admin: 10/02/17 08:47 Dose: 12.5 mg Mometasone Furoate/Formoterol Fumar (Dulera 100-5 Mcg) 2 puff IH BIDRT [facility] Nystatin/Triamcinolone Acetonide (Mycolog Crm) 0 gm TOP BID [facility] Last Admin: 10/02/17 08:50 Dose: 1 applic Omeprazole (Omeprazole) 20 mg PO ACBRK [facility] Last Admin: 10/02/17 05:33 Dose: 20 mg Clorazepate Dipotassium ( Tranxene-T) 7.5 Mg Tab Own Med 0 each PO BEDTIME [facility] Last Admin: 10/01/17 20:35 Dose: 1 each Myrbetriq ( Mirabegron) 25 Mg Tab Own Med 0 each PO BEDTIME [facility] Last Admin: 10/01/17 20:35 Dose: 1 each Prednisone (Prednisone) 10 mg PO DAILY [facility] Last Admin: 10/02/17 08:48 Dose: 10 mg Sodium Chloride (Saline Flush) 10 ml FLUSH ASDIRECTED PRN PRN Reason: Keep Vein Open Last Admin: 09/27/17 10:05 Dose: 10 ml Discontinued Medications Albuterol/Ipratropium (Duoneb 3.0-0.5 Mg/3 Ml) 3 ml NEB TIDRT [facility] Last Admin: 10/02/17 07:35 Dose: 3 ml Ceftriaxone Sodium (Rocephin) 1 gm IVPUSH Q12H [facility] Ceftriaxone Sodium (Rocephin) 1 gm IVPUSH Q12HR [facility] Stop: 09/28/17 22:00 Last Admin: 09/28/17 20:34 Dose: 1 gm Cyanocobalamin (Vitamin B12) 1,000 mcg IM ONETIME ONE Stop: 09/28/17 20:01 Last Admin: 09/28/17 19:34 Dose: 1,000 mcg Guaifenesin/Phenylephrine HCl (Robitussin Dm) 10 ml PO BEDTIME [facility] Last Admin: 09/28/17 20:34 Dose: 10 ml Insulin Detemir (Levemir) 10 unit SUBCUT DAILY [facility] Last Admin: 09/20/17 08:58 Dose: 10 units Methylprednisolone Sodium Succinate (Solu-Medrol) 40 mg IVPUSH Q12H [facility] Methylprednisolone Sodium Succinate (Solu-Medrol) 20 mg IVPUSH Q12H [facility] Last Admin: 09/20/17 10:33 Dose: Not Given - Exam General: Alert, Oriented Neck: Supple Lungs: Clear to Auscultation, Normal Respiratory Effort Cardiovascular: Regular Rate, Regular Rhythm Extremities: No Pedal Edema Neurological: No New Focal Deficit Psy/Mental Status: Alert, Normal Affect, Normal Mood - Problem List & Annotations (1) Acute exacerbation of chronic obstructive pulmonary disease (COPD) SNOMED Code(s): 432123042 Code(s): J44.1 - CHRONIC OBSTRUCTIVE PULMONARY DISEASE W (ACUTE) EXACERBATION Status: Acute Priority: High Current Visit: Yes (2) Pneumonia SNOMED Code(s): 011426100 Code(s): J18.9 - PNEUMONIA, UNSPECIFIED ORGANISM Status: Acute Current Visit: Yes Qualifiers: Pneumonia type: due to unspecified organism Laterality: bilateral Lung location: unspecified part of lung Qualified Code(s): J18.9 - Pneumonia, unspecified organism - Problem List Review Problem List Initiated/Reviewed/Updated: Yes - My Orders Last 24 Hours: My Active Orders 10/02/17 18:00 Mometasone/Formoterol [Dulera 100-5 MCG] 2 puff IH BIDRT - Assessment Assessment:: - Generalized debilitated state -Resolving pneumonia -COPD - Plan Plan:: Pneumonia Finish antibiotic course Acute exacerbation of COPD Improved Will change from scheduled DuoNeb treatments to twice a day dulera Continue as needed albuterol Diabetes Treat with glimepiride Follow blood sugars and supplemental insulin as needed Urinary frequency and retention Has a Lopez catheter Will attempt to remove before discharge to fpc Coronary artery disease Continue treatment with aspirin and Plavix
[2017-10-02] MEDS: Formoterol/Mometasone 100-5 MCG 8.8 GM Inhaler IH SCH (17:38)
[2017-10-02] MEDS: CLORAZEPATE DIPOTASSIUM 7.5 MG PO SCH (21:14)
[2017-10-02] MEDS: MYRBETRIQ 25 MG PO SCH (21:15)
[2017-10-02] MEDS: Acetaminophen 325 MG Tab PO PRN (21:15)
[2017-10-03] MEDS: Levothyroxine 125 MCG Tab PO SCH (05:36)
[2017-10-03] MEDS: Omeprazole 20 MG Cap.CR PO SCH (05:36)
[2017-10-03] MEDS: Insulin Aspart 100 Units/ML 3 ML Pen SUBCUT SCH ×4 (08:41→21:41)
[2017-10-03] MEDS: Formoterol/Mometasone 100-5 MCG 8.8 GM Inhaler IH SCH ×2 (08:44→17:21)
[2017-10-03] MEDS: Clopidogrel 75 MG Tab PO SCH (08:45)
[2017-10-03] MEDS: Tamsulosin 0.4 MG Cap.ER PO SCH (08:45)
[2017-10-03] MEDS: Losartan 50 MG Tab PO SCH (08:45)
[2017-10-03] MEDS: predniSONE 10 MG Tab PO SCH (08:45)
[2017-10-03] MEDS: Hydroxychloroquine 200 MG Tab PO SCH (08:45)
[2017-10-03] MEDS: Aspirin 81 MG Tab.EC PO SCH (08:45)
[2017-10-03] MEDS: Meclizine 12.5 MG Tab PO SCH ×2 (08:46→21:41)
[2017-10-03] MEDS: Glimepiride 2 MG Tab PO SCH (08:46)
[2017-10-03] MEDS: Insulin Detemir 100 Units/ML 3 ML Pen SUBCUT SCH (08:49)
[2017-10-03] MEDS: MYRBETRIQ 25 MG PO SCH (21:43)
[2017-10-03] MEDS: CLORAZEPATE DIPOTASSIUM 7.5 MG PO SCH (21:43)
[2017-10-04] MEDS: Omeprazole 20 MG Cap.CR PO SCH (06:36)
[2017-10-04] MEDS: Levothyroxine 125 MCG Tab PO SCH (06:36)
[2017-10-04] MEDS: Insulin Aspart 100 Units/ML 3 ML Pen SUBCUT SCH ×4 (08:25→21:39)
[2017-10-04] MEDS: Clopidogrel 75 MG Tab PO SCH (09:10)
[2017-10-04] MEDS: Formoterol/Mometasone 100-5 MCG 8.8 GM Inhaler IH SCH ×2 (09:10→18:29)
[2017-10-04] MEDS: Glimepiride 2 MG Tab PO SCH (09:10)
[2017-10-04] MEDS: Losartan 50 MG Tab PO SCH (09:10)
[2017-10-04] MEDS: Hydroxychloroquine 200 MG Tab PO SCH (09:11)
[2017-10-04] MEDS: Meclizine 12.5 MG Tab PO SCH ×2 (09:11→21:28)
[2017-10-04] MEDS: predniSONE 10 MG Tab PO SCH (09:11)
[2017-10-04] MEDS: Tamsulosin 0.4 MG Cap.ER PO SCH (09:11)
[2017-10-04] MEDS: Aspirin 81 MG Tab.EC PO SCH (09:11)
[2017-10-04] MEDS: Insulin Detemir 100 Units/ML 3 ML Pen SUBCUT SCH (09:12)
[2017-10-04] MEDS: CLORAZEPATE DIPOTASSIUM 7.5 MG PO SCH (21:29)
[2017-10-04] MEDS: MYRBETRIQ 25 MG PO SCH (21:29)
[2017-10-05] MEDS: Acetaminophen 325 MG Tab PO PRN (03:09)
[2017-10-05] MEDS: Levothyroxine 125 MCG Tab PO SCH (06:16)
[2017-10-05] MEDS: Omeprazole 20 MG Cap.CR PO SCH (06:16)
[2017-10-05] MEDS: Insulin Aspart 100 Units/ML 3 ML Pen SUBCUT SCH (08:08)
[2017-10-05] MEDS: Formoterol/Mometasone 100-5 MCG 8.8 GM Inhaler IH SCH (08:37)
[2017-10-05] MEDS: Insulin Detemir 100 Units/ML 3 ML Pen SUBCUT SCH (08:38)
[2017-10-05] MEDS: Meclizine 12.5 MG Tab PO SCH (08:39)
[2017-10-05] MEDS: Aspirin 81 MG Tab.EC PO SCH (08:39)
[2017-10-05] MEDS: predniSONE 10 MG Tab PO SCH (08:39)
[2017-10-05] MEDS: Hydroxychloroquine 200 MG Tab PO SCH (08:39)
[2017-10-05] MEDS: Glimepiride 2 MG Tab PO SCH (08:40)
[2017-10-05] MEDS: Clopidogrel 75 MG Tab PO SCH (08:40)
[2017-10-05] MEDS: Tamsulosin 0.4 MG Cap.ER PO SCH (08:41)
[2017-10-05] MEDS: Losartan 50 MG Tab PO SCH (08:41)
[2017-10-05 08:42] VITALS: BP 110/50
--- NOTE | 2017-10-05 10:29 | PCM.DCSUM1 ---
Discharge Summary - Hospital Course Free Text/Narrative:: Mr. Vicente was originally admitted to acute care for the treatment of pneumonia. He was noted to have weakness and was transferred to swing bed for further physical therapy and continuing antibiotic course. Pneumonia Finish antibiotic course Appears resolved Acute exacerbation of COPD Resolved Continue dulera Continue as needed albuterol Diabetes Treat with glimepiride Follow blood sugars and supplemental insulin as needed Urinary frequency and retention Lopez catheter was placed Patient preferred to keep it rather then removing. Coronary artery disease Continue treatment with aspirin and Plavix - Discharge Data Discharge Date: 10/05/17 Discharge Disposition: DC/Tfer to [facility] Condition: Good - Discharge Diagnosis/Problem(s) (1) Acute exacerbation of chronic obstructive pulmonary disease (COPD) SNOMED Code(s): 933301639 ICD Code: J44.1 - CHRONIC OBSTRUCTIVE PULMONARY DISEASE W (ACUTE) EXACERBATION Status: Acute Priority: High Current Visit: Yes (2) Pneumonia SNOMED Code(s): 021746458 ICD Code: J18.9 - PNEUMONIA, UNSPECIFIED ORGANISM Status: Acute Current Visit: Yes Qualifiers: Pneumonia type: due to unspecified organism Laterality: bilateral Lung location: unspecified part of lung Qualified Code(s): J18.9 - Pneumonia, unspecified organism - Patient Summary/Data Consults: Consultations 09/18/17 16:44 OT Evaluation and Treatment [CONS] Routine PT Evaluation and Treatment [CONS] Routine - Patient Instructions Diet: Diabetic Diet Activity: As Tolerated - Discharge Plan Prescriptions/Med Rec: Formoterol/Mometasone [Dulera 100-50 MCG] 2 puff IH BID #1 hfa.aer.ad Home Medications: Home Meds Aspirin [Ecotrin] 81 mg PO DAILY 11/05/15 [History] Clopidogrel [Plavix] 75 mg PO DAILY 11/05/15 [History] Cyanocobalamin (Vitamin B-12) [Cyanocobalamin Injection] 1,000 mcg IM .MONTHLY 11/05/15 [History] Esomeprazole [NexIUM] 40 mg PO DAILY 11/05/15 [History] Glimepiride [Amaryl] 2 mg PO WITHBREAKFAST 11/05/15 [History] Hydroxychloroquine Sulfate [Plaquenil] 200 mg PO DAILY 11/05/15 [History] Levothyroxine Sodium [Synthroid] 125 mcg PO DAILY 11/05/15 [History] Losartan Potassium [Cozaar] 50 mg PO DAILY 11/05/15 [History] Mirabegron [Myrbetriq] 25 mg PO BEDTIME 11/05/15 [History] Pravastatin Sodium [Pravachol] 20 mg PO BEDTIME 11/05/15 [History] azaTHIOprine [Imuran] 50 mg PO DAILY 11/05/15 [History] predniSONE [Prednisone] 10 mg PO DAILY 11/05/15 [History] Albuterol [IJD: Albuterol] 2.5 mg NEB Q4HRRT PRN nebule 10/05/17 [Rx] Formoterol/Mometasone [Dulera 100-50 MCG] 2 puff IH BID #1 hfa.aer.ad 10/05/17 [ Rx] Insulin Aspart [NovoLOG] 0 unit SUBCUT ACBED pen 10/05/17 [Rx] Patient's Own Medication [Ptom] 0 each PO BEDTIME each 10/05/17 [Rx] Patient's Own Medication [Ptom] 0 each PO BEDTIME each 10/05/17 [Rx] Tamsulosin [Flomax] 0.4 mg PO PCBREAKFAST cap.er 10/05/17 [Rx] Patient Handouts: Chronic Obstructive Pulmonary Disease Exacerbation, Easy-to- Read, Community-Acquired Pneumonia, Adult, [id number] - Discharge Summary/Plan Comment DC Time >30 min.: Yes (referral to [place]) - General Info Date of Service: 10/05/17 Admission Dx/Problem (Free Text: Pneumonia Generalized debilitated state Subjective Update: He is feeling well, ready to be discharged today. No complaints Functional Status: Reports: Pain Controlled, Tolerating Diet - Review of Systems General: Denies: Fever, Weakness Pulmonary: Denies: Shortness of Breath Cardiovascular: Denies: Chest Pain Genitourinary: Reports: Other (Tolerating Lopez catheter and does not want it to be removed) - Patient Data Vitals - Most Recent: Last Vital Signs Temp 36.7 C 10/05/17 07:00 Pulse 74 10/05/17 07:00 Resp 22 H 10/05/17 07:00 BP 110/50 L 10/05/17 08:41 Pulse Ox 97 10/05/17 07:00 Weight - Most Recent: 56.79 kg I&O - Last 24 hours: Intake & Output 10/04/17 10/05/17 10/05/17 22:59 06:59 14:59 Intake Total 425 Balance 425 Lab Results - Last 24 hrs: Laboratory Results - last 24 hr 10/04/17 10/04/17 10/04/17 Range/Units 11:17 16:56 20:54 POC Glucose 235 H 169 H 246 H (83-110) mg/dl 10/05/17 Range/Units 07:49 POC Glucose 124 H (83-110) mg/dl Med Orders - Current: Current Medications Acetaminophen (Tylenol) 650 mg PO Q4H PRN PRN Reason: Pain/Fever Last Admin: 10/05/17 03:09 Dose: 650 mg Albuterol (Proventil Neb Soln) 2.5 mg NEB Q4HRRT PRN PRN Reason: Dyspnea Last Admin: 09/22/17 11:16 Dose: 2.5 mg Aspirin (Halfprin) 81 mg PO DAILY [facility] Last Admin: 10/05/17 08:39 Dose: 81 mg Azathioprine (Imuran) 50 mg PO WITHBREAKFAST [facility] Last Admin: 10/05/17 08:41 Dose: 50 mg Bisacodyl (Dulcolax) 10 mg RECTAL DAILY PRN PRN Reason: Constipation Last Admin: 09/24/17 00:01 Dose: 10 mg Clopidogrel Bisulfate (Plavix) 75 mg PO DAILY [facility] Last Admin: 10/05/17 08:40 Dose: 75 mg Glimepiride (Amaryl) 2 mg PO WITHBREAKFAST [facility] Last Admin: 10/05/17 08:40 Dose: 2 mg Guaifenesin/Phenylephrine HCl (Robitussin Dm) 10 ml PO Q4HR PRN PRN Reason: Cough Last Admin: 09/29/17 23:40 Dose: 10 ml Hydroxychloroquine Sulfate (Plaquenil) 200 mg PO DAILY [facility] Last Admin: 10/05/17 08:39 Dose: 200 mg Insulin Aspart (Novolog) 0 unit SUBCUT ACBED [facility] PRN Reason: Protocol Last Admin: 10/05/17 08:08 Dose: Not Given Insulin Detemir (Levemir) 0 unit SUBCUT DAILY [facility] Last Admin: 10/05/17 08:38 Dose: 12 units Levothyroxine Sodium (Levothyroxine) 125 mcg PO ACBREAKFAST [facility] Last Admin: 10/05/17 06:16 Dose: 125 mcg Losartan Potassium (Cozaar) 50 mg PO DAILY [facility] Last Admin: 10/05/17 08:41 Dose: 50 mg Meclizine HCl (Antivert) 12.5 mg PO BID [facility] Last Admin: 10/05/17 08:39 Dose: 12.5 mg Mometasone Furoate/Formoterol Fumar (Dulera 100-5 Mcg) 2 puff IH BIDRT [facility] Last Admin: 10/05/17 08:37 Dose: 2 puff Nystatin/Triamcinolone Acetonide (Mycolog Crm) 0 gm TOP BID [facility] Last Admin: 10/05/17 08:43 Dose: 1 applic Omeprazole (Omeprazole) 20 mg PO ACBRK [facility] Last Admin: 10/05/17 06:16 Dose: 20 mg Clorazepate Dipotassium ( Tranxene-T) 7.5 Mg Tab Own Med 0 each PO BEDTIME [facility] Last Admin: 10/04/17 21:29 Dose: 1 each Myrbetriq ( Mirabegron) 25 Mg Tab Own Med 0 each PO BEDTIME [facility] Last Admin: 10/04/17 21:29 Dose: 1 each Prednisone (Prednisone) 10 mg PO DAILY [facility] Last Admin: 10/05/17 08:39 Dose: 10 mg Sodium Chloride (Saline Flush) 10 ml FLUSH ASDIRECTED PRN PRN Reason: Keep Vein Open Last Admin: 09/27/17 10:05 Dose: 10 ml Tamsulosin HCl (Flomax) 0.4 mg PO PCBREAKFAST [facility] Last Admin: 10/05/17 08:41 Dose: 0.4 mg Discontinued Medications Albuterol/Ipratropium (Duoneb 3.0-0.5 Mg/3 Ml) 3 ml NEB TIDRT [facility] Last Admin: 10/02/17 07:35 Dose: 3 ml Ceftriaxone Sodium (Rocephin) 1 gm IVPUSH Q12H [facility] Ceftriaxone Sodium (Rocephin) 1 gm IVPUSH Q12HR [facility] Stop: 09/28/17 22:00 Last Admin: 09/28/17 20:34 Dose: 1 gm Cyanocobalamin (Vitamin B12) 1,000 mcg IM ONETIME ONE Stop: 09/28/17 20:01 Last Admin: 09/28/17 19:34 Dose: 1,000 mcg Guaifenesin/Phenylephrine HCl (Robitussin Dm) 10 ml PO BEDTIME [facility] Last Admin: 09/28/17 20:34 Dose: 10 ml Insulin Detemir (Levemir) 10 unit SUBCUT DAILY [facility] Last Admin: 09/20/17 08:58 Dose: 10 units Methylprednisolone Sodium Succinate (Solu-Medrol) 40 mg IVPUSH Q12H [facility] Methylprednisolone Sodium Succinate (Solu-Medrol) 20 mg IVPUSH Q12H [facility] Last Admin: 09/20/17 10:33 Dose: Not Given - Exam General: Reports: Alert, Oriented Neck: Reports: Supple Lungs: Reports: Normal Respiratory Effort, Decreased Breath Sounds Cardiovascular: Reports: Regular Rate, Regular Rhythm GI/Abdominal Exam: Normal Bowel Sounds, Soft, Non-Tender (Male) Exam: Other (Lopez catheter) Extremities: No Pedal Edema *Q Meaningful Use (DIS) - VTE *Q VTE Criteria *Q: - Stroke *Q Stroke Criteria *Q: - AMI *Q AMI Criteria *Q:
== END 2017-10-05 10:55 | DRG 194 ==
LOC: DL.MS 14:14 → UNDOADMIN 14:14 → DL.MS 15:26
PROVIDERS: ADMIT Internal Medicine; ATTEND Internal Medicine
PROC: 0T9B70Z Drainage of Bladder with Drainage Device, Via Natural or Artificial Opening (ICD-10-PCS; principal; 2017-09-22)
DX: J18.9 Pneumonia, unspecified organism (principal); J44.1 Chronic obstructive pulmonary disease with (acute) exacerbation; E11.9 Type 2 diabetes mellitus without complications; R35.0 Frequency of micturition; R33.9 Retention of urine, unspecified; I25.10 Atherosclerotic heart disease of native coronary artery without angina pectoris; R54 Age-related physical debility; Z95.2 Presence of prosthetic heart valve; E03.9 Hypothyroidism, unspecified; E78.5 Hyperlipidemia, unspecified; D64.9 Anemia, unspecified; H54.7 Unspecified visual loss; H91.90 Unspecified hearing loss, unspecified ear; M32.9 Systemic lupus erythematosus, unspecified; M06.9 Rheumatoid arthritis, unspecified; M81.0 Age-related osteoporosis without current pathological fracture; N18.9 Chronic kidney disease, unspecified; F41.9 Anxiety disorder, unspecified; I12.9 Hypertensive chronic kidney disease with stage 1 through stage 4 chronic kidney disease, or unspecified chronic kidney disease; Z87.891 Personal history of nicotine dependence; N40.1 Benign prostatic hyperplasia with lower urinary tract symptoms
CPT/HCPCS: 36415; 51702; 80048; 81001; 82962; 85025; 94010; 94640; 97110-GO; 97110-GP; 97116-GP; 97161-GP; 97166-GO; 97530-GO; 97530-GP; 97535-GO; A9270-GY; J0696; J2920; J3420; J7050; J7500; J7620-GY

== ENCOUNTER 2018-05-02 17:46 | Inpatient (IN) | payer MEDICARE, MEDICAID ==
--- NOTE | 2018-05-02 17:55 | EDM.PDOC ---
ED HPI GENERAL MEDICAL PROBLEM - General Stated Complaint: CAME BY AMBULANCE Time Seen by Provider: 05/02/18 17:46 Source of Information: Reports: Patient, EMS History Limitations: Reports: No Limitations - History of Present Illness INITIAL COMMENTS - FREE TEXT/NARRATIVE: This 87 yo male patient was brought to the ED by [facility] due to generalized shaking and unequal pupils. According to the [facility] and the patient's , the patient had eaten dinner. When he got back to his room, the patient's noticed that the patient was shaking and his pupils were not equal. senior care staff report that the patient normally has some speech deficits, but normally is not shaking. The [facility] staff has not noticed the difference in the patient's pupils in the past. Onset: Today Duration: Minutes: Location: Reports: Face (unequal pupils), Generalized (shakin) Quality: Reports: Other Severity: Moderate Improves with: Reports: None Worsens with: Reports: None Associated Symptoms: Reports: Cough - Related Data Allergies Allergy/AdvReac Type Severity Reaction Status Date / Time No Known Allergies Allergy Verified 09/18/17 15:23 Home Meds: Home Meds Aspirin [Ecotrin] 81 mg PO DAILY 11/05/15 [History] Clopidogrel [Plavix] 75 mg PO DAILY 11/05/15 [History] Cyanocobalamin (Vitamin B-12) [Cyanocobalamin Injection] 1,000 mcg IM .MONTHLY 11/05/15 [History] Glimepiride [Amaryl] 2 mg PO BID 11/05/15 [History] Hydroxychloroquine Sulfate [Plaquenil] 200 mg PO DAILY 11/05/15 [History] Levothyroxine Sodium [Synthroid] 125 mcg PO DAILY 11/05/15 [History] Mirabegron [Myrbetriq] 25 mg PO BEDTIME 11/05/15 [History] Pravastatin Sodium [Pravachol] 20 mg PO BEDTIME 11/05/15 [History] azaTHIOprine [Imuran] 50 mg PO DAILY 11/05/15 [History] predniSONE [Prednisone] 10 mg PO DAILY 11/05/15 [History] Albuterol [IJD: Albuterol] 2.5 mg NEB Q4HRRT PRN nebule 10/05/17 [Rx] Tamsulosin [Flomax] 0.4 mg PO PCBREAKFAST cap.er 10/05/17 [Rx] Acetaminophen [Acetaminophen ER] 650 mg PO Q4HR PRN 05/02/18 [History] Budesonide/Formoterol Fumarate [Symbicort 160-4.5 Mcg Inhaler] 2 puff INH BID [History] Melatonin 3 mg PO DAILY 05/02/18 [History] Multivitamin with Minerals [One Daily Plus Minerals] 1 tab PO DAILY 05/02/18 [ History] Pantoprazole Sodium [Protonix] 40 mg PO DAILY 05/02/18 [History] Simethicone 80 mg PO TID 05/02/18 [History] Past Medical History HEENT History: Reports: Cataract, Hard of Hearing, Impaired Vision, Macular Degeneration Other HEENT History: WEARS upper and lower dentures Cardiovascular History: Reports: CAD, High Cholesterol, Hypertension, [place], Other (See Below) Other Cardiovascular History: MILD CAROTID STENOSIS; STROKE (PT STATES HE WAS TOLD BY A DOCTOR THAT THEY WERE NOT SURE IF IT WAS TRULY A STROKE OR A [place]) Gastrointestinal History: Reports: Diverticulosis, Hemorrhoids, Other (See Below ) Other Gastrointestinal History: DYSPHAGIA R/T STROKE(not affected at this time) ; GASTRIC ULCER Genitourinary History: Reports: Renal Disease, Retention, Urinary Musculoskeletal History: Reports: Arthritis, SLE Neurological History: Reports: CVA Other Neuro History: STROKE (PT STATES HE WAS TOLD BY A DOCTOR THAT THEY WERE NOT SURE IF IT WAS TRULY A STROKE OR A [place]) Psychiatric History: Reports: Anxiety Endocrine/Metabolic History: Reports: Diabetes, Type II, Hypothyroidism Hematologic History: Reports: Anemia, Blood Transfusion(s), Transfusion Reaction Other Hematologic History: ATTEMPTED TO HAVE TWO UNITS BLOOD TRANSFUSED - PT "FROZE TO " AND STOPPED TRANSFUSION Immunologic History: Reports: SLE - Past Surgical History HEENT Surgical History: Reports: Cataract Surgery Cardiovascular Surgical History: Reports: Carotid Endarterectomy, Coronary Artery Stent, Vascular Surgery Respiratory Surgical History: Reports: None GI Surgical History: Reports: Appendectomy, Cholecystectomy, Colonoscopy, Hernia , Inguinal Male Surgical History: Reports: None Neurological Surgical History: Reports: None Musculoskeletal Surgical History: Reports: None Oncologic Surgical History: Reports: None Social & Family History - Family History Family Medical History: Noncontributory - Caffeine Use Caffeine Use: Reports: Coffee, Soda - Living Situation & Occupation Living situation: Reports: , with Spouse 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 ED EXAM, GENERAL - Physical Exam Exam: See Below Exam Limited By: No Limitations General Appearance: Alert, WD/WN, Moderate Distress, Thin Eye Exam: Bilateral Eye: Other (Right pupil was a 2 and sluggish while the left pupil was a 5 and non-ractive) Ears: Other (bilateral hearing aids) Nose: Normal Inspection, Normal Mucosa, No Blood Throat/Mouth: Normal Inspection, Normal Lips, Normal Teeth, Normal Gums, Normal Oropharynx, Normal Voice, No Airway Compromise Head: Atraumatic, Normocephalic Neck: Normal Inspection, Supple, Non-Tender, Full Range of Motion Respiratory/Chest: No Respiratory Distress, Rhonchi (right sided) Cardiovascular: No Edema, Tachycardia GI/Abdominal: Normal Bowel Sounds, Soft, Non-Tender, No Organomegaly, No Distention, No Abnormal Bruit, No Mass (Male) Exam: Deferred Rectal (Males) Exam: Deferred Back Exam: Normal Inspection, Full Range of Motion, NT Extremities: Normal Inspection, Normal Range of Motion, Non-Tender, Normal Capillary Refill, No Pedal Edema Neurological: Alert, Oriented Psychiatric: Normal Affect, Normal Mood Skin Exam: Warm, Dry, Intact, Normal Color, No Rash Lymphatic: No Adenopathy Course - Vital Signs Last Recorded V/S: Last Vital Signs Temp 37.0 C 05/02/18 17:46 Pulse 122 H 05/02/18 17:46 Resp 26 H 05/02/18 17:46 BP 149/95 H 05/02/18 17:46 Pulse Ox 84 L 05/02/18 17:46 - Orders/Labs/Meds Orders: Active Orders 24 hr Category Date Time Status EKG Documentation Completion [RC] URGENT Care 05/02/18 17:47 Active CULTURE BLOOD [BC] Stat Lab 05/02/18 18:23 Received CULTURE BLOOD [BC] Stat Lab 05/02/18 18:52 Received CULTURE URINE [RM] Stat Lab 05/02/18 18:41 Received UA W/MICROSCOPIC [URIN] Stat Lab 05/02/18 18:41 Ordered Blood Culture x2 Reflex Set [OM.PC] Stat Oth 05/02/18 18:37 Ordered Labs: Laboratory Tests 05/02/18 05/02/18 05/02/18 Range/Units 18:23 18:23 18:23 WBC 12.3 H (5.0-10.0) 10^3/uL RBC 4.12 L (4.6-6.2) 10^6/uL Hgb 12.6 L (14.0-18.0) g/dL Hct 39.4 L (40.0-54.0) % MCV 95.6 D (80-100) fL MCH 30.6 (27.0-34.0) pg MCHC 32.0 L (33.0-35.0) g/dL Plt Count 265 (150-450) 10^3/uL Neut % (Auto) 85.1 H (42.2-75.2) % Lymph % (Auto) 8.2 L (20.5-50.1) % Callahan % (Auto) 6.6 (2-8) % Eos % (Auto) 0.0 L (1.0-3.0) % Baso % (Auto) 0.1 (0.0-1.0) % Sodium 139 (135-145) mmol/L Potassium 5.7 H (3.6-5.0) mmol/L Chloride 104 (101-111) mmol/L Carbon Dioxide 22.0 (21.0-31.0) mmol/L Anion Gap 18.7 BUN 42 H (7-18) mg/dL Creatinine 1.4 H (0.6-1.3) mg/dL Est Cr Clr Drug Dosing 24.38 mL/min Estimated GFR (MDRD) 48 BUN/Creatinine Ratio 30.00 Glucose 268 H (74-105) mg/dL Lactic Acid 5.0 H (0.5-2.2) mmol/L Calcium 8.7 (8.4-10.2) mg/dl Total Bilirubin 0.8 (0.2-1.0) mg/dL AST 35 (10-42) IU/L ALT 15 (10-60) IU/L Alkaline Phosphatase 61 (42-121) IU/L Troponin I 0.10 H* (0.00-0.02) ng/ml Total Protein 6.1 L (6.7-8.2) g/dl Albumin 3.2 (3.2-5.5) g/dl Globulin 2.9 Albumin/Globulin Ratio 1.10 Urine Color (YELLOW) Urine Appearance (CLEAR) Urine pH (5.0-9.0) Ur Specific Island (1.005-1.030) Urine Protein (NEGATIVE) Urine Glucose (UA) (NEGATIVE) Urine Ketones (NEGATIVE) Urine Occult Blood (NEGATIVE) Urine Nitrite (NEGATIVE) Urine Bilirubin (NEGATIVE) Urine Urobilinogen (0.2-1.0) mg/dL Ur Leukocyte Esterase (NEGATIVE) 05/02/18 Range/Units 18:41 WBC (5.0-10.0) 10^3/uL RBC (4.6-6.2) 10^6/uL Hgb (14.0-18.0) g/dL Hct (40.0-54.0) % MCV (80-100) fL MCH (27.0-34.0) pg MCHC (33.0-35.0) g/dL Plt Count (150-450) 10^3/uL Neut % (Auto) (42.2-75.2) % Lymph % (Auto) (20.5-50.1) % Callahan % (Auto) (2-8) % Eos % (Auto) (1.0-3.0) % Baso % (Auto) (0.0-1.0) % Sodium (135-145) mmol/L Potassium (3.6-5.0) mmol/L Chloride (101-111) mmol/L Carbon Dioxide (21.0-31.0) mmol/L Anion Gap BUN (7-18) mg/dL Creatinine (0.6-1.3) mg/dL Est Cr Clr Drug Dosing mL/min Estimated GFR (MDRD) BUN/Creatinine Ratio Glucose (74-105) mg/dL Lactic Acid (0.5-2.2) mmol/L Calcium (8.4-10.2) mg/dl Total Bilirubin (0.2-1.0) mg/dL AST (10-42) IU/L ALT (10-60) IU/L Alkaline Phosphatase (42-121) IU/L Troponin I (0.00-0.02) ng/ml Total Protein (6.7-8.2) g/dl Albumin (3.2-5.5) g/dl Globulin Albumin/Globulin Ratio Urine Color Yellow (YELLOW) Urine Appearance Turbid (CLEAR) Urine pH 7.0 (5.0-9.0) Ur Specific [place] >= 1.030 (1.005-1.030) Urine Protein >=300 H (NEGATIVE) Urine Glucose (UA) Negative (NEGATIVE) Urine Ketones Negative (NEGATIVE) Urine Occult Blood Moderate H (NEGATIVE) Urine Nitrite Negative (NEGATIVE) Urine Bilirubin Small H (NEGATIVE) Urine Urobilinogen 2.0 H (0.2-1.0) mg/dL Ur Leukocyte Esterase Large H (NEGATIVE) Departure - Departure Time of Disposition: 19:37 Disposition: Admitted As Inpatient 65 Condition: Poor Clinical Impression: Elevated troponin I level Pneumonia Qualifiers: Pneumonia type: due to unspecified organism Laterality: bilateral Lung location : unspecified part of lung Qualified Code(s): J18.9 - Pneumonia, unspecified organism - Discharge Information *PRESCRIPTION DRUG MONITORING PROGRAM REVIEWED*: Not Applicable *COPY OF PRESCRIPTION DRUG MONITORING REPORT IN PATIENT JEANNIE: Not Applicable Care Plan Goals: Discussed the examination, CT, x-ray, EKG and lab results with the family and Dr. Patino. Dr. Patino agreed to admit the patient to [facility]. The family agreed to have the patient stay in our facility for continued care and management. - My Orders Last 24 Hours: My Active Orders 05/02/18 17:47 EKG Documentation Completion [RC] URGENT 05/02/18 18:23 CULTURE BLOOD [BC] Stat 05/02/18 18:37 Blood Culture x2 Reflex Set [OM.PC] Stat 05/02/18 18:41 CULTURE URINE [RM] Stat UA W/MICROSCOPIC [URIN] Stat 05/02/18 18:52 CULTURE BLOOD [BC] Stat - Assessment/Plan Last 24 Hours: My Active Orders 05/02/18 17:47 EKG Documentation Completion [RC] URGENT 05/02/18 18:23 CULTURE BLOOD [BC] Stat 05/02/18 18:37 Blood Culture x2 Reflex Set [OM.PC] Stat 05/02/18 18:41 CULTURE URINE [RM] Stat UA W/MICROSCOPIC [URIN] Stat 05/02/18 18:52 CULTURE BLOOD [BC] Stat
[2018-05-02 18:48] LABS: ANION GAP 18.7
[2018-05-02] MEDS ORDERED: cefTRIAXone 1 GM Vial IVPUSH ONE (19:43)
[2018-05-02 20:19] VITALS: BP 109/43
[2018-05-02] MEDS ORDERED: Polyethylene Glycol 3350 Powder 17 GM Packet PO PRN (20:55)
[2018-05-02] MEDS ORDERED: Ondansetron 4 MG/2 ML SDV IVPUSH PRN (20:55)
[2018-05-02] MEDS ORDERED: Magnesium Hydroxide 400 MG/5 ML Susp 30 ML Cup PO PRN (20:55)
[2018-05-02] MEDS ORDERED: Albuterol/Ipratropium 3.0-0.5 MG/3 ML Neb Soln NEB SCH (21:00)
[2018-05-02] MEDS ORDERED: Piperacillin/Tazobactam 3.375 GM in Sodium Chloride 0.9% 100 ML IV SCH (21:00)
[2018-05-02] MEDS ORDERED: Metoclopramide 10 MG/2 ML SDV IVPUSH PRN (21:00)
[2018-05-02] MEDS ORDERED: guaiFENesin 100 MG/5 ML Soln 5 ML UD Cup PO PRN (21:03)
[2018-05-02] MEDS ORDERED: Acetaminophen 325 MG Tab PO PRN (21:03)
[2018-05-02] MEDS ORDERED: 50% Dextrose in Water 50 ML Syringe IVPUSH PRN (21:05)
[2018-05-02] MEDS ORDERED: Sodium Chloride 0.9% 1,000 ML IV SCH (21:15)
[2018-05-02] MEDS ORDERED: Glycopyrrolate 0.2 MG/ML 2 ML SDV SUBCUT SCH ×2 (21:30→23:00)
[2018-05-02] MEDS ORDERED: Formoterol/Mometasone 200-5 MCG 8.8 GM Inhaler IH SCH (21:45)
[2018-05-02] MEDS ORDERED: Heparin Sodium 5,000 Units/ML Vial SUBCUT SCH (22:00)
[2018-05-02] MEDS ORDERED: methylPREDNISolone Sodium Succinate 40 MG/1 ML SDV IVPUSH SCH (22:00)
[2018-05-02 23:03] LABS: O2 DELIVERY DEVICE NASAL CANNULA
[2018-05-02 23:46] LABS: ALLEN TEST PERFORMED; BASE EXCESS ARTERIAL -6 mmol/L ((-2)-(+3)); BICARBONATE,ARTERIAL 19.1 mmol/L (22-26); O2 SATURATION ARTERIAL 60 % (95-100); PCO2 ARTERIAL 38 mmHg (35-45); PO2 ARTERIAL 41 mmHg (70-100)
[2018-05-03] MEDS ORDERED: Atropine 1% Ophth Soln 5 ML BOTTLE SL PRN (00:17)
--- NOTE | 2018-05-03 04:20 | HP ---
CHIEF COMPLAINT: Increasing weakness, tiredness, shivering, and chills. HISTORY OF PRESENTING ILLNESS: Mr. 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 At this time, the patient appears to be very weak and tired, so history is also obtained from family members at bedside. As per the family members, he has been apparently at his baseline function until yesterday. Usually, he is not very active. He is very weak and tired and has been losing weight lately. This afternoon while he was having his lunch, he started having shakes and chills with rigors, so was brought to the emergency room. The patient at this time denies any complaints of chest pain but complains of shortness of breath aggravated on exertion, relieved with rest, needing supplemental oxygen. He denies any chest pains. Complains of having cough with sputum, and there was copious sputum in the ER. The patient denies any abdominal pain. No nausea. No vomiting. No diarrhea. The patient is not very active at the alf. He denied any chest pains on exertion. No dyspnea on exertion. No history of orthopnea or paroxysmal nocturnal dyspnea. The patient denied any history of hematemesis, hematochezia, or melenic stools. REVIEW OF SYSTEMS: A complete review of system including skin, ear, nose, and throat, cardiovascular system, respiratory system, gastrointestinal system, genitourinary system, hematology, oncology, neurology, constitutional were all evaluated. PAST MEDICAL HISTORY: Significant for: 1. Hypertension. 2. Hyperlipidemia. 3. Type 2 diabetes mellitus. 4. SLE. 5. Rheumatoid arthritis. 6. Glaucoma. 7. Generalized debility. 8. Chronic kidney disease. 9. Hypothyroidism. 10.History of MA. 11.Coronary artery disease. 12.Anxiety. 13.Blood transfusion in the past. PAST SURGICAL HISTORY: Significant for: 1. Vascular, endovascular angiogram. 2. Appendicectomy. 3. Cystourethroscopy. 4. Carotid endarterectomy. 5. Cardiac catheterization and stent placement. FAMILY HISTORY: Significant for heart attack and heart disease in his mother and tuberculosis in his father. SOCIAL HISTORY: The patient had history of smoking in the past but quit smoking since 1989. Occasional alcohol intake in the past. ALLERGIES: No known drug allergies. HOME MEDICATIONS: Include: 1. Robitussin 200 mg q.4 hours. 2. Gas-X 80 mg 3 times a day. 3. Prednisone 10 mg daily. 4. Imuran 50 mg daily. 5. Flomax 0.4 mg. 6. Pravastatin 20 mg at bedtime. 7. Protonix 40 mg daily. 8. Melatonin 3 mg daily. 9. Levothyroxine 125 mcg daily. 10.Hydrochloroquine, Plaquenil 200 mg daily. 11.Amaryl 2 mg twice a day. 12.Cyanocobalamin 1000 mcg IM monthly. 13.Symbicort inhalation twice a day. 14.Aspirin 81 mg daily. 15.Albuterol nebulizer every 4 hours as needed. 16.Tylenol 650 every 4 hours as needed for pain and fever. PHYSICAL EXAMINATION: Vital Signs: Temperature of 98.8, pulse of 122, blood pressure 149/95, respiratory rate of 26, saturating at 84% requiring 2 to 3 L of nasal cannula oxygen. General Appearance: The patient is well oriented to time, place, and person. Follows commands spontaneously. Appears to be in mild respiratory distress. Cardiovascular System: S1 and S2 heard with normal intensity. No gallops. Respiratory System: Bilateral crepitations positive, more so on the right lower lobe. Coarse crackles also noted. Abdomen: Soft. Bowel sounds positive. Nontender. No rigidity. No guarding. No rebound tenderness. Extremities: No edema of bilateral lower extremities. Neurology: No gross focal neurological deficit. Genitourinary: Chronic indwelling Lopez catheter in place. LABORATORY DATA: Labs reviewed. WBC 12.3, hemoglobin 12.6, hematocrit 39.4, platelet count 265. Sodium 139, potassium 5.7, chloride 104, bicarb 22, BUN 42, creatinine 1.4, glucose 268, troponin 0.1. Urinalysis; large leukocyte esterase, greater than 100 wbc's, 50 to 75 rbc's, many bacteria, rare epithelial cells. ASSESSMENT: 1. Possible pneumonia. 2. Possible sepsis. 3. Urinary tract infection. 4. Hyperkalemia. 5. Lactic acidosis. 6. Chronic kidney disease. 7. Hypertension. 8. Type 2 diabetes mellitus. 9. History of rheumatoid arthritis. 10.History of systemic lupus erythematosus. 11.Malnutrition with cachexia. 12.Acute respiratory failure with hypoxia. PLAN: 1. Pneumonia. The patient presents with fevers and chills and a chest x-ray suggestive of possible pneumonia. He is also noted to have copious amount of cough with sputum suggestive of pneumonia. We will start him on IV antibiotic, ceftriaxone and Zithromax. We will obtain blood cultures, sputum cultures, and titrate the antibiotics. 2. Sepsis. The patient was noted to have fevers at home, noted to be tachycardic and tachypneic with leukocytosis suggestive of sepsis from underlying UTI and pneumonia. We will start him on IV antibiotic, ceftriaxone and Zithromax. We will follow the culture reports. 3. Acute respiratory failure. The patient was noted to be hypoxic and is tachypneic and in respiratory distress suggestive of acute hypoxic respiratory failure. The patient is having copious secretion and is unable to clear his secretions. We will have him on nebulizer treatment, DuoNeb and Pulmicort nebulizer. We will have RT assess and treat. We will have him on incentive spirometer and flutter valve for better pulmonary toileting and help him with suctioning of the secretions by RT. 4. Hypertension. The patient's blood pressure seems to be on the lower side. Try to avoid any hypotensive episodes. Maintain euvolemic status. 5. Type 2 diabetes mellitus, uncontrolled. The patient noted to have elevated blood sugars. We will have him on insulin regimen. The patient usually takes Amaryl at home. Continue the same. Check his fingersticks with each meals, have him on supplemental scale insulin as needed for additional coverage of his blood glucose. 6. Rheumatoid arthritis. The patient has chronic history of SLE and rheumatoid arthritis. He has been on Plaquenil and Imuran. We will continue the same. We will continue the prednisone. 7. DVT prophylaxis indicated. We will have him on heparin for DVT prophylaxis. 8. Anemia. This could be anemia of chronic disease. The patient had history of hemolytic anemia in the past. 9. Elevated troponin. Unsure if this is demand ischemia. A 12-lead EKG looks within normal limits. No significant ST elevation or ST depression. We will have him on Telemetry Unit. Continue the aspirin status. 10.Hyperkalemia. We will recheck a potassium level at this time. If it is still elevated, then the patient might benefit from insulin, calcium, dextrose, and Kayexalate. Closely follow. 11.Code status. The patient wants to be DNR/DNI. 12. Overall prognosis looks guarded with this patient with pneumonia, UTI, sepsis, acute respiratory failure, and elevated troponin. 13.Family members wants him to be treated here and do not want to escalate any treatment, do not want to be transferred to higher level of care. If the patient deteriorates, then the patient and family members want to be kept comfort cares only. 14.Discussed with the patient and family members at bedside. Discussed with Cayden Mantilla, the ER staff regarding the plan of care. Reviewed the labs and medications. Reviewed the old charts. [facility] /[id number] CAROLEE
[2018-05-03] MEDS ORDERED: Pantoprazole 40 MG Tab.CR PO SCH (06:00)
[2018-05-03] MEDS ORDERED: Levothyroxine 125 MCG Tab PO SCH (06:00)
[2018-05-03] MEDS ORDERED: Azithromycin 500 MG in Sodium Chloride 0.9% 250 ML IV SCH (08:00)
[2018-05-03] MEDS ORDERED: Tamsulosin 0.4 MG Cap.ER PO SCH (08:30)
[2018-05-03] MEDS ORDERED: Non-Formulary Medication 1 Each (Melatonin [Melatonin] 3 MG) PO SCH (09:00)
[2018-05-03] MEDS ORDERED: Insulin Aspart 100 Units/ML 3 ML Pen SUBCUT SCH (09:00)
[2018-05-03] MEDS ORDERED: Glimepiride 2 MG Tab PO SCH (09:00)
[2018-05-03] MEDS ORDERED: Hydroxychloroquine 200 MG Tab PO SCH (09:00)
[2018-05-03] MEDS ORDERED: Aspirin 81 MG Tab.EC PO SCH (09:00)
[2018-05-03] MEDS ORDERED: Multivitamins,Therapeutic Tab PO SCH (09:00)
[2018-05-03] MEDS ORDERED: Simethicone 80 MG Tab.Chew PO SCH (09:00)
[2018-05-03] MEDS ORDERED: Clopidogrel 75 MG Tab PO SCH (09:00)
[2018-05-03] MEDS ORDERED: Pravastatin 20 MG Tab PO SCH (21:00)
[2018-05-03] MEDS ORDERED: Non-Formulary Medication 1 Each (Mirabegron [Myrbetriq] 25 MG) PO SCH (21:00)
--- NOTE | 2018-05-04 08:50 | DISCH ---
DATE OF SERVICE: 05/03/2018 DATE OF : 05/03/2018 ADMITTING DIAGNOSES: 1. Pneumonia. 2. Sepsis from pneumonia. 3. Urinary tract infection from chronic indwelling Lopez catheter. 4. Hyperkalemia. 5. Lactic acidosis. 6. Acute respiratory failure with hypoxia. 7. Severe malnutrition. DISCHARGE DIAGNOSES: 1. Acute hypoxic respiratory failure. 2. Pneumonia. 3. Sepsis from pneumonia and urinary tract infection. 4. Urinary tract infection from chronic indwelling Lopez catheter. 5. Hyperkalemia. 6. Lactic acidosis. CAUSE OF : 1. Acute hypoxic respiratory failure from pneumonia. 2. Possible [id number] myocardial infarction versus type 2 myocardial infarction from sepsis and pneumonia. HISTORY OF PRESENT ILLNESS: Mr. Nelson Vicente is an 87-year-old male with a medical history significant for hypertension, hyperlipidemia, type 2 diabetes mellitus, coronary artery disease, rheumatoid arthritis, SLE, hypothyroidism, and anemia, was admitted to the hospital with complaints of having fevers and chills and rigors and noted to have pneumonia and urinary tract infection. The patient has a chronic indwelling Lopez catheter placement which would have put at risk for UTI and also noted to have sepsis. He had elevated troponin suggestive of possible [id number] myocardial infarction versus type 2 WA from his underlying pneumonia and sepsis. The patient was noted to be in acute hypoxic and hypercapnic respiratory failure on this admission. The patient had a very poor prognosis. After having a detailed discussion with the patient's family members, they opted for palliative care and comfort cares. The patient was switched to palliative care on this admission and kept him comfort. Soon after, the patient from acute respiratory failure. [facility] /[id number]
--- NOTE | 2018-05-04 09:02 | EKG ---
05/02/2018- DANIA PATEL - FINDINGS: A 12-lead EKG shows normal sinus rhythm with sinus tachycardia with heart rate of 123. Left anterior fascicular block noted. No significant ST elevation or ST depression noted. Nonspecific ST-T wave changes noted on lead V3 and also on lead II. [facility] /[id number]
== END 2018-05-03 04:00 | disposition expired | DRG 698 ==
LOC: DL.ED 17:46 → UNDOADMIN 19:47 → DL.MS 19:47
PROVIDERS: ADMIT Internal Medicine; ATTEND Internal Medicine
DX: T83.511A Infection and inflammatory reaction due to indwelling urethral catheter, initial encounter (principal); A41.9 Sepsis, unspecified organism; J18.9 Pneumonia, unspecified organism; J96.01 Acute respiratory failure with hypoxia; E43 Unspecified severe protein-calorie malnutrition; I10 Essential (primary) hypertension; I65.29 Occlusion and stenosis of unspecified carotid artery; I21.4 Non-ST elevation (NSTEMI) myocardial infarction; R33.9 Retention of urine, unspecified; I21.A1 Myocardial infarction type 2; E11.9 Type 2 diabetes mellitus without complications; E87.2 Acidosis; Z68.1 Body mass index [BMI] 19.9 or less, adult; N39.0 Urinary tract infection, site not specified; Z66 Do not resuscitate; Z51.5 Encounter for palliative care; Z79.84 Long term (current) use of oral hypoglycemic drugs; Y84.6 Urinary catheterization as the cause of abnormal reaction of the patient, or of later complication, without mention of misadventure at the time of the procedure; E11.22 Type 2 diabetes mellitus with diabetic chronic kidney disease; E78.5 Hyperlipidemia, unspecified; M32.9 Systemic lupus erythematosus, unspecified; M06.9 Rheumatoid arthritis, unspecified; E87.5 Hyperkalemia; I12.9 Hypertensive chronic kidney disease with stage 1 through stage 4 chronic kidney disease, or unspecified chronic kidney disease; N18.9 Chronic kidney disease, unspecified; E03.9 Hypothyroidism, unspecified; E11.65 Type 2 diabetes mellitus with hyperglycemia; D63.8 Anemia in other chronic diseases classified elsewhere; I25.10 Atherosclerotic heart disease of native coronary artery without angina pectoris; H40.9 Unspecified glaucoma; F41.9 Anxiety disorder, unspecified; H54.7 Unspecified visual loss; H91.90 Unspecified hearing loss, unspecified ear; Z95.5 Presence of coronary angioplasty implant and graft; I25.2 Old myocardial infarction; Z82.49 Family history of ischemic heart disease and other diseases of the circulatory system; Z87.891 Personal history of nicotine dependence; Z79.899 Other long term (current) drug therapy; Z79.82 Long term (current) use of aspirin; Z79.52 Long term (current) use of systemic steroids; Z79.02 Long term (current) use of antithrombotics/antiplatelets
CPT/HCPCS: 36415; 36600; 70450; 71045; 80053; 81001; 82803; 83605; 83880; 84132; 84484; 85025; 87040; 87070; 87086; 87088; 87186; 87205; 93005; 93010; 94640; 96374; 99284; 99285; A9270-GY; J0696; J1644; J2543; J2920; J7030; J7050; J7620-GY